=== PATIENT | female | born 1960 | race Caucasian/White ===

== ENCOUNTER → 2017-07-01 | Outpatient (CLI) | payer OTHER ==
[~2017-07-01] MED LIST: AMOXICILLIN 8751 TAB PO; CARAFATE 1GM1 G PO; CELEXA 20MG20 MG/TAB PO; COZAAR 25MG25 MG/TAB PO; DOXYCYCLINE 10100 MG PO; FLEXERIL10 MG PO; HYZAAR 50-12.1 UDTAB PO; LEVAQUIN 750MG750 M1 PO; LIDODERM 5% PATC1 EA TP; LIORESAL 1010 MG/TAB PO; LORTAB 5/500 501 TAB PO; MELOXICAM15 MG PO; MIRAPEX0.25 MG PO; MOBIC15 MG PO; NAPROSYN500 MG; NORCO 325 MG-51 TAB PO; PREDNISONE20 MG PO; PROAIR HFA0.09 MG/AC IH; PROTONIX 40MG T40 MG PO; ROXICODONE 55 MG/TAB PO; RT SPIRIVA18 MCG IH; SODIUM BICARBO650 MG PO; TOPROL XL 25MG25 MG PO; ULTRAM 50MG TAB50 MG PO; WELLBUTRIN 75MG75 MG PO
== END ==
LOC: MHCPAIN 10:29
DX: G89.29 Other chronic pain (principal); M47.817 Spondylosis without myelopathy or radiculopathy, lumbosacral region; M53.3 Sacrococcygeal disorders, not elsewhere classified; Z87.891 Personal history of nicotine dependence
CPT/HCPCS: G0463

== ENCOUNTER → 2017-08-01 | Outpatient (CLI) | payer OTHER ==
[~2017-08-01] MED LIST changes: -AMOXICILLIN 8751 TAB PO; -COZAAR 25MG25 MG/TAB PO; -DOXYCYCLINE 10100 MG PO; -LEVAQUIN 750MG750 M1 PO; -LIDODERM 5% PATC1 EA TP; -LIORESAL 1010 MG/TAB PO; -PREDNISONE20 MG PO; -PROAIR HFA0.09 MG/AC IH; -ROXICODONE 55 MG/TAB PO; -RT SPIRIVA18 MCG IH; -SODIUM BICARBO650 MG PO; -TOPROL XL 25MG25 MG PO
== END ==
LOC: MHCPAIN 09:16
DX: G89.29 Other chronic pain (principal); M47.27 Other spondylosis with radiculopathy, lumbosacral region; M53.3 Sacrococcygeal disorders, not elsewhere classified; Z87.891 Personal history of nicotine dependence
CPT/HCPCS: G0463

== ENCOUNTER → 2017-12-02 | Outpatient (CLI) | payer OTHER | LOC: MHCPAIN 09:01 | DX: G89.29 Other chronic pain (principal); M47.817 Spondylosis without myelopathy or radiculopathy, lumbosacral region; M53.3 Sacrococcygeal disorders, not elsewhere classified; Z87.891 Personal history of nicotine dependence | CPT/HCPCS: G0463 ==

== ENCOUNTER 2017-12-16 16:29 | Inpatient (IN) | payer OTHER ==
[2017-12-16] VITALS (175 sets, daily range): BP systolic 118; BP diastolic 68; PULSE 93; TEMP 99.2; O2SAT 93–100
[~2017-12-16] VITALS: Ht 160 cm; Wt 54.6 kg
[2017-12-16] MEDS ORDERED: ROXICODONE 55 MG/TAB PO (16:41)
[2017-12-16] MEDS ORDERED: RT SPIRIVA18 MCG IH (16:41)
[2017-12-16 17:20] LABS: BASO # 0.1 (0.0-0.2); BASO % 0.7 % (0.0-2.0); EOS # 0.1 (0.0-0.7); EOS % 1.2 % (0-4.0); GRAN # 6.8 (1.4-6.5); GRAN % 56.1 % (42.2-75.2); HEMATOCRIT 37.3 % (37.0-47.0); HEMOGLOBIN 13.2 g/dl (12.5-16.0); LYMPH # 3.8 (1.2-3.4); LYMPH % 31.7 % (20.0-51.0); MEAN CELL VOLUME 96 fl (80.0-100.0); MEAN CORPUSCULAR HEMOGLOBIN 34 pg (27.0-31.0); MEAN CORPUSCULAR HGB CONC 35 g/dl (33.0-37.0); MEAN PLATELET VOLUME 9.8 fl (7.4-10.4); MONO # 1.2 (0.1-0.6); MONO % 9.9 % (1.7-9.3); PLATELET COUNT 325 K/mm3 (130-400); RED BLOOD COUNT 3.87 M/mm3 (4.10-5.30); REDCELL DISTRIBUTION WIDTH-CV 13.5 % (11.5-14.5)
[2017-12-16 17:31] LABS: ALBUMIN 5.6 gm/dL (3.5-5.0); CREATININE, serum 3.03 mg/dL (0.52-1.25); POTASSIUM 3.5 mmol/L (3.4-5.0); TOTAL PROTEIN 9.1 gm/dL (6.4-8.2)
[2017-12-16 18:41] LABS: ARTERIAL BLD GAS O2 SATURATION 91.1 % (92-100); ARTERIAL BLD GAS TCO2 CT 28.1; ARTERIAL BLOOD GAS BASE EXCESS 3.9 (-2-2); ARTERIAL BLOOD GAS PCO2 35.5 mmHg (35-45); ARTERIAL BLOOD GAS PO2 58.6 mmHg (80-100)
[2017-12-16] MEDS ORDERED: LIORESAL 1010 MG/TAB PO (22:24)
[2017-12-16 23:25] LABS: PROTHROMBIN TIME 11.8 SECONDS (9.7-12.8)
[2017-12-16 23:33] LABS: SALICYLATE < 1.0 mg/dL
[2017-12-16 23:45] LABS: TROPONIN-I < 0.012 ng/mL (0.000-0.034)
[2017-12-17] VITALS (693 sets, daily range): BP systolic 100–141; BP diastolic 58–86; PULSE 66–112; TEMP 98.2–99.2; O2SAT 78–100
[2017-12-17 04:24] LABS: BASO % 0.5 % (0.0-2.0); GRAN # 3.5 (1.4-6.5); GRAN % 81.1 % (42.2-75.2); LYMPH # 0.7 (1.2-3.4); LYMPH % 15.1 % (20.0-51.0); MEAN CELL VOLUME 96 fl (80.0-100.0); MEAN CORPUSCULAR HGB CONC 35 g/dl (33.0-37.0); MEAN PLATELET VOLUME 9.9 fl (7.4-10.4); MONO # 0.1 (0.1-0.6); MONO % 2.8 % (1.7-9.3); PLATELET COUNT 277 K/mm3 (130-400); RED BLOOD COUNT 3.36 M/mm3 (4.10-5.30); REDCELL DISTRIBUTION WIDTH-CV 13.3 % (11.5-14.5)
[2017-12-17 04:28] LABS: HEMATOCRIT 32.3 % (37.0-47.0); HEMOGLOBIN 11.4 g/dl (12.5-16.0); MEAN CORPUSCULAR HEMOGLOBIN 34 pg (27.0-31.0)
[2017-12-17 04:40] LABS: ARTERIAL BLD GAS O2 SATURATION 96.5 % (92-100); ARTERIAL BLD GAS TCO2 CT 30.7; ARTERIAL BLOOD GAS BASE EXCESS 5.3 (-2-2); ARTERIAL BLOOD GAS HCO3 29.5 meq/L (22-26); ARTERIAL BLOOD GAS PCO2 41.7 mmHg (35-45); ARTERIAL BLOOD GAS PO2 94.7 mmHg (80-100); ARTERIAL BLOOD GAS pH 7.47 (7.35-7.45)
[2017-12-17 05:33] LABS: MUCOUS Present /lpf; PH 6 (5-8); URINE APPEARANCE Clear; URINE BACTERIA None Seen /hpf; URINE BILIRUBIN Negative (NEGATIVE); URINE BLOOD Negative (NEGATIVE); URINE COLOR Yellow; URINE GLUCOSE 1+ (NEGATIVE); URINE KETONE Trace (NEGATIVE); URINE LEUKOCYTE ESTERASE Negative (NEGATIVE); URINE NITRATE Negative (NEGATIVE); URINE PROTEIN(semi-quant) Negative (NEGATIVE); URINE RBC 0-2 /hpf; URINE UROBILINOGEN Negative (NEGATIVE)
[2017-12-17 05:38] LABS: COLLECTION METHOD CATHETER
[2017-12-17 05:56] LABS: ALBUMIN 4.2 gm/dL (3.5-5.0); BILIRUBIN,TOTAL 0.7 mg/dL (0.0-1.0); CALCIUM 8.7 mg/dL (8.4-10.2); CREATININE, serum 2.03 mg/dL (0.52-1.25); POTASSIUM 3.7 mmol/L (3.4-5.0)
[2017-12-18 04:26] VITALS: BP 118/75; PULSE 98; TEMP 98.5
[2017-12-18 06:26] LABS: MEAN CELL VOLUME 100 fl (80.0-100.0); MEAN CORPUSCULAR HGB CONC 34 g/dl (33.0-37.0); MEAN PLATELET VOLUME 10.4 fl (7.4-10.4); PLATELET COUNT 272 K/mm3 (130-400); RED BLOOD COUNT 2.92 M/mm3 (4.10-5.30); REDCELL DISTRIBUTION WIDTH-CV 13.8 % (11.5-14.5)
[2017-12-18 06:30] LABS: HEMATOCRIT 29.3 % (37.0-47.0); HEMOGLOBIN 9.9 g/dl (12.5-16.0); MEAN CORPUSCULAR HEMOGLOBIN 34 pg (27.0-31.0)
[2017-12-18 06:31] LABS: ALBUMIN 3.7 gm/dL (3.5-5.0); BILIRUBIN,TOTAL 0.6 mg/dL (0.0-1.0); CALCIUM 8.5 mg/dL (8.4-10.2); CREATININE, serum 1.3 mg/dL (0.52-1.25); POTASSIUM 3.1 mmol/L (3.4-5.0); TOTAL PROTEIN 6.3 gm/dL (6.4-8.2)
[2017-12-18 08:41] VITALS: BP 115/59; PULSE 88; TEMP 97.4
[2017-12-18 09:13] LABS: BAND 22 % (0-10); HYPOCHROMIA 1+; LYMPHOCYTE 15 % (20.0-51.0); NEUTROPHILS 62 % (42.0-75.2); PLATELET ESTIMATE NORMAL (NORMAL); TARGET CELLS 2+
[2017-12-18 11:18] VITALS: BP 133/69; PULSE 82; TEMP 98.3
[2017-12-18 15:27] VITALS: BP 132/69; PULSE 92; TEMP 97.4
[2017-12-18 19:28] VITALS: BP 135/74; PULSE 85; TEMP 98.6
[2017-12-18 23:50] VITALS: BP 150/86; PULSE 92; TEMP 97.6
[2017-12-19 03:38] VITALS: BP 156/93; PULSE 99; TEMP 98.1
[2017-12-19 06:56] LABS: MEAN CELL VOLUME 102 fl (80.0-100.0); MEAN CORPUSCULAR HGB CONC 33 g/dl (33.0-37.0); MEAN PLATELET VOLUME 10.6 fl (7.4-10.4); PLATELET COUNT 277 K/mm3 (130-400); RED BLOOD COUNT 3.04 M/mm3 (4.10-5.30)
[2017-12-19 07:12] LABS: HEMOGLOBIN 10.2 g/dl (12.5-16.0); MEAN CORPUSCULAR HEMOGLOBIN 34 pg (27.0-31.0)
[2017-12-19 07:20] LABS: BILIRUBIN,TOTAL 0.6 mg/dL (0.0-1.0); CALCIUM 9.2 mg/dL (8.4-10.2); CREATININE, serum 1.16 mg/dL (0.52-1.25); POTASSIUM 3.7 mmol/L (3.4-5.0); TOTAL PROTEIN 6.7 gm/dL (6.4-8.2)
[2017-12-19 07:54] VITALS: BP 151/100; PULSE 82; TEMP 98.5
[2017-12-19] MEDS ORDERED: LIDODERM 5% PATC1 EA TP (09:55)
[2017-12-19] MEDS ORDERED: LEVAQUIN 750MG750 M1 PO (09:57)
[2017-12-19 10:00] VITALS: BP 118/65
[2017-12-19] MEDS ORDERED: PREDNISONE20 MG PO (10:00)
[2017-12-19 10:41] LABS: BAND 7 % (0-10); LYMPHOCYTE 29 % (20.0-51.0); NEUTROPHILS 57 % (42.0-75.2); PLATELET ESTIMATE NORMAL (NORMAL)
[2017-12-19 11:50] VITALS: BP 147/76; PULSE 79; TEMP 98.4
== END 2017-12-19 16:43 | disposition home or self-care (01) | DRG 871 ==
LOC: COL.ER 16:29 → MEDICAL 17:50 → ICU 17:50 → MEDICAL 12-17 14:07
PROVIDERS: Family Medicine; Internal Medicine Pulmonary Disease; Nurse Practitioner Family
DX: A41.9 Sepsis, unspecified organism (principal); R65.21 Severe sepsis with septic shock; N17.9 Acute kidney failure, unspecified; E87.1 Hypo-osmolality and hyponatremia; J44.1 Chronic obstructive pulmonary disease with (acute) exacerbation; J44.0 Chronic obstructive pulmonary disease with (acute) lower respiratory infection; E44.0 Moderate protein-calorie malnutrition; J20.9 Acute bronchitis, unspecified; J44.9 Chronic obstructive pulmonary disease, unspecified; I10 Essential (primary) hypertension; G25.81 Restless legs syndrome; R73.9 Hyperglycemia, unspecified; E86.0 Dehydration; Z87.891 Personal history of nicotine dependence; Z68.21 Body mass index [BMI] 21.0-21.9, adult
CPT/HCPCS: 99223-AI; 99232-AI; 99239; C9113; J1644; J1956; J2930; J3010; J7030; J7512

== ENCOUNTER → 2018-02-28 | Outpatient (CLI) | payer OTHER ==
[~2018-02-28] MED LIST changes: +LEVAQUIN 750MG750 M1 PO; +LIDODERM 5% PATC1 EA TP; +LIORESAL 1010 MG/TAB PO; +PREDNISONE20 MG PO; +ROXICODONE 55 MG/TAB PO; +RT SPIRIVA18 MCG IH
== END ==
LOC: MHCPAIN 09:23
DX: G89.29 Other chronic pain (principal); M47.817 Spondylosis without myelopathy or radiculopathy, lumbosacral region; M53.3 Sacrococcygeal disorders, not elsewhere classified
CPT/HCPCS: G0463

== ENCOUNTER 2018-06-30 15:46 | Emergency (ER) | payer OTHER ==
[~2018-06-30] VITALS: Ht 162.6 cm; Wt 49.1 kg
[2018-06-30 15:50] VITALS: TEMP 98.4
[2018-06-30 16:39] LABS: ALCOHOL(ethanol),MEDICAL 204 mg/dL
[2018-06-30 17:00] LABS: TROPONIN-I < 0.012 ng/mL (0.000-0.034)
[2018-06-30 17:33] LABS: INR 0.9 (0.8-3.0)
[2018-06-30 18:54] LABS: COLLECTION METHOD CLEAN CATCH
[2018-06-30 19:01] LABS: PH 7 (5-8); SQUAMOUS EPITHELIAL 0-2 /hpf; URINE APPEARANCE Clear; URINE BACTERIA None Seen /hpf; URINE BILIRUBIN Negative (NEGATIVE); URINE BLOOD Negative (NEGATIVE); URINE COLOR Yellow; URINE GLUCOSE Negative (NEGATIVE); URINE KETONE Negative (NEGATIVE); URINE LEUKOCYTE ESTERASE Negative (NEGATIVE); URINE NITRATE Negative (NEGATIVE); URINE PROTEIN(semi-quant) Negative (NEGATIVE); URINE RBC 0-2 /hpf; URINE UROBILINOGEN Negative (NEGATIVE)
[2018-06-30 19:45] VITALS: BP 128/85; PULSE 72
== END 2018-06-30 19:45 | disposition home or self-care (01) ==
LOC: COL.ER 15:46
PROVIDERS: Emergency Medicine
DX: I95.1 Orthostatic hypotension (principal); E86.0 Dehydration; I10 Essential (primary) hypertension; E78.5 Hyperlipidemia, unspecified; J44.9 Chronic obstructive pulmonary disease, unspecified; F10.129 Alcohol abuse with intoxication, unspecified; F32.9 Major depressive disorder, single episode, unspecified; Y90.7 Blood alcohol level of 200-239 mg/100 ml; Z87.891 Personal history of nicotine dependence; Z91.81 History of falling
CPT/HCPCS: J7030

== ENCOUNTER 2018-07-16 06:46 | Inpatient (IN) | payer OTHER ==
[~2018-07-16] VITALS: Ht 160 cm; Wt 50.7 kg
[2018-07-16 07:18] LABS: HEMATOCRIT 40.4 % (37.0-47.0); HEMOGLOBIN 14.3 g/dl (12.5-16.0); MEAN CELL VOLUME 96 fl (80.0-100.0); MEAN CORPUSCULAR HEMOGLOBIN 34 pg (27.0-31.0); MEAN CORPUSCULAR HGB CONC 35 g/dl (33.0-37.0); MEAN PLATELET VOLUME 10.3 fl (7.4-10.4); PLATELET COUNT 323 K/mm3 (130-400); RED BLOOD COUNT 4.19 M/mm3 (4.10-5.30); REDCELL DISTRIBUTION WIDTH-CV 14.8 % (11.5-14.5)
[2018-07-16 07:28] LABS: ALBUMIN 4.8 gm/dL (3.5-5.0); BILIRUBIN,TOTAL 1.5 mg/dL (0.0-1.0); CALCIUM 10.3 mg/dL (8.4-10.2); CREATININE, serum 1.01 mg/dL (0.52-1.25); POTASSIUM 3.9 mmol/L (3.4-5.0); TOTAL PROTEIN 8.8 gm/dL (6.4-8.2)
[2018-07-16 07:41] LABS: BAND 31 % (0-10); LYMPHOCYTE 6 % (20.0-51.0); NEUTROPHILS 55 % (42.0-75.2); PLATELET ESTIMATE NORMAL (NORMAL)
[2018-07-16 08:04] LABS: AMYLASE 85 U/L (30-110); LIPASE 46 U/L (23-300)
[2018-07-16] MEDS ORDERED: PROAIR HFA0.09 MG/AC IH (08:33)
[2018-07-16 09:17] LABS: COLLECTION METHOD CLEAN CATCH
[2018-07-16 09:27] LABS: PH 6 (5-8); SQUAMOUS EPITHELIAL 0-2 /hpf; URINE APPEARANCE Clear; URINE BACTERIA None Seen /hpf; URINE BILIRUBIN Negative (NEGATIVE); URINE BLOOD Negative (NEGATIVE); URINE COLOR Yellow; URINE GLUCOSE 1+ (NEGATIVE); URINE KETONE 1+ (NEGATIVE); URINE LEUKOCYTE ESTERASE Negative (NEGATIVE); URINE NITRATE Negative (NEGATIVE); URINE PROTEIN(semi-quant) 1+ (NEGATIVE); URINE RBC 0-2 /hpf; URINE UROBILINOGEN >=4.0 mg/dL (NEGATIVE)
[2018-07-16 10:03] VITALS: BP 175/95; PULSE 110; TEMP 97.8
[2018-07-16] MEDS ORDERED: COZAAR 25MG25 MG/TAB PO (10:34)
[2018-07-16 12:25] VITALS: BP 144/86; PULSE 106; TEMP 98
[2018-07-16 16:31] VITALS: BP 153/88; PULSE 115; TEMP 98
[2018-07-16 20:34] VITALS: BP 106/59; PULSE 125; TEMP 98
[2018-07-16 22:48] VITALS: BP 100/62; PULSE 129
[2018-07-17] VITALS (407 sets, daily range): BP systolic 80–128; BP diastolic 40–79; PULSE 118–136; TEMP 97.2–98; O2SAT 82–100
[2018-07-17 00:29] LABS: CALCIUM 8.2 mg/dL (8.4-10.2); CREATININE, serum 1.13 mg/dL (0.52-1.25); MAGNESIUM 1.8 mg/dL (1.6-2.3); POTASSIUM 3.3 mmol/L (3.4-5.0)
[2018-07-17 00:45] LABS: TROPONIN-I 2.24 ng/mL (0.000-0.034)
[2018-07-17 01:35] LABS: HEMATOCRIT 37.1 % (37.0-47.0); HEMOGLOBIN 12.8 g/dl (12.5-16.0); MEAN CELL VOLUME 98 fl (80.0-100.0); MEAN CORPUSCULAR HEMOGLOBIN 34 pg (27.0-31.0); MEAN CORPUSCULAR HGB CONC 35 g/dl (33.0-37.0); MEAN PLATELET VOLUME 10.3 fl (7.4-10.4); PLATELET COUNT 263 K/mm3 (130-400); RED BLOOD COUNT 3.78 M/mm3 (4.10-5.30); REDCELL DISTRIBUTION WIDTH-CV 14.4 % (11.5-14.5)
[2018-07-17 02:08] LABS: INR 1.1 (0.8-3.0); PROTHROMBIN TIME 12.4 SECONDS (9.7-12.8)
[2018-07-17 03:03] LABS: BAND 48 % (0-10); METAMYELOCYTE 6 % (0-0); MYELOCYTE 2 % (0-0); NEUTROPHILS 15 % (42.0-75.2)
[2018-07-17 03:04] LABS: LYMPHOCYTE 26 % (20.0-51.0)
[2018-07-17 03:12] LABS: TOXIC GRANULATION PRESENT
[2018-07-17 03:13] LABS: BURR CELLS 1+; POIKILOCYTOSIS 1+; TARGET CELLS 1+
[2018-07-17 03:21] LABS: ANISOCYTOSIS 1+; MICROCYTOSIS 1+; SCHISTOCYTES 1+
[2018-07-17 03:33] LABS: PLATELET ESTIMATE NORMAL (NORMAL)
[2018-07-17 04:34] LABS: ARTERIAL BLOOD GAS BASE EXCESS -5.4 (-2-2); ARTERIAL BLOOD GAS HCO3 17.2 meq/L (22-26); ARTERIAL BLOOD GAS PCO2 25.9 mmHg (35-45); ARTERIAL BLOOD GAS PO2 68.2 mmHg (80-100); ARTERIAL BLOOD GAS pH 7.44 (7.35-7.45)
[2018-07-17 08:39] LABS: PATHOLOGY DIFF REVIEW OK +
[2018-07-17 10:06] LABS: ARTERIAL BLD GAS TCO2 CT 14.3; ARTERIAL BLOOD GAS BASE EXCESS -14.1 (-2-2); ARTERIAL BLOOD GAS HCO3 13.2 meq/L (22-26); ARTERIAL BLOOD GAS PCO2 36.3 mmHg (35-45)
[2018-07-17 10:08] LABS: ARTERIAL BLOOD GAS PO2 375.8 mmHg (80-100); ARTERIAL BLOOD GAS pH 7.18 (7.35-7.45)
[2018-07-17 10:41] LABS: CREATININE, serum 1.12 mg/dL (0.52-1.25); POTASSIUM 3.9 mmol/L (3.4-5.0)
[2018-07-17 10:43] LABS: CALCIUM 5.7 mg/dL (8.4-10.2)
[2018-07-17 10:49] LABS: MEAN CORPUSCULAR HGB CONC 33 g/dl (33.0-37.0); MEAN PLATELET VOLUME 10.9 fl (7.4-10.4); PLATELET COUNT 202 K/mm3 (130-400); RED BLOOD COUNT 2.81 M/mm3 (4.10-5.30); REDCELL DISTRIBUTION WIDTH-CV 15.1 % (11.5-14.5)
[2018-07-17 10:52] LABS: HEMATOCRIT 29.1 % (37.0-47.0); HEMOGLOBIN 9.6 g/dl (12.5-16.0); MEAN CELL VOLUME 104 fl (80.0-100.0); MEAN CORPUSCULAR HEMOGLOBIN 34 pg (27.0-31.0)
[2018-07-17 11:57] LABS: ARTERIAL BLD GAS O2 SATURATION 93.9 % (92-100); ARTERIAL BLD GAS TCO2 CT 13.9; ARTERIAL BLOOD GAS BASE EXCESS -14.2 (-2-2); ARTERIAL BLOOD GAS HCO3 12.9 meq/L (22-26); ARTERIAL BLOOD GAS PCO2 34.3 mmHg (35-45); ARTERIAL BLOOD GAS PO2 90.6 mmHg (80-100)
[2018-07-17 11:58] LABS: ARTERIAL BLOOD GAS pH 7.19 (7.35-7.45)
[2018-07-17 12:41] LABS: BAND 41 % (0-10); EOSINOPHIL 2 % (0-4); METAMYELOCYTE 7 % (0-0); MYELOCYTE 8 % (0-0); NEUTROPHILS 11 % (42.0-75.2); NUCLEATED RED BLOOD CELL 1 (0-6)
[2018-07-17 12:42] LABS: PLATELET ESTIMATE NORMAL (NORMAL)
[2018-07-17 12:43] LABS: LYMPHOCYTE 22 % (20.0-51.0)
[2018-07-17 12:44] LABS: ANISOCYTOSIS 1+; BURR CELLS 1+; POIKILOCYTOSIS 1+; SCHISTOCYTES 1+
[2018-07-17 16:33] LABS: ARTERIAL BLD GAS O2 SATURATION 98.1 % (92-100); ARTERIAL BLD GAS TCO2 CT 13.4; ARTERIAL BLOOD GAS BASE EXCESS -12.4 (-2-2); ARTERIAL BLOOD GAS HCO3 12.6 meq/L (22-26); ARTERIAL BLOOD GAS PCO2 25.8 mmHg (35-45); ARTERIAL BLOOD GAS pH 7.31 (7.35-7.45)
[2018-07-17 16:35] LABS: ARTERIAL BLOOD GAS PO2 150.1 mmHg (80-100)
[2018-07-17 17:31] LABS: CALCIUM 6.9 mg/dL (8.4-10.2); CREATININE, serum 1.21 mg/dL (0.52-1.25)
[2018-07-17 20:18] LABS: ARTERIAL BLD GAS O2 SATURATION 97.9 % (92-100); ARTERIAL BLD GAS TCO2 CT 16.9; ARTERIAL BLOOD GAS BASE EXCESS -7.6 (-2-2); ARTERIAL BLOOD GAS HCO3 16.1 meq/L (22-26); ARTERIAL BLOOD GAS PCO2 26.6 mmHg (35-45)
[2018-07-17 20:20] LABS: ARTERIAL BLOOD GAS PO2 134.1 mmHg (80-100)
[2018-07-18] VITALS (875 sets, daily range): BP systolic 74–112; BP diastolic 42–80; PULSE 92–134; TEMP 97–101.1; O2SAT 84–100
[2018-07-18 04:20] LABS: MEAN CELL VOLUME 100 fl (80.0-100.0); MEAN CORPUSCULAR HGB CONC 34 g/dl (33.0-37.0); MEAN PLATELET VOLUME 11.2 fl (7.4-10.4); PLATELET COUNT 161 K/mm3 (130-400); RED BLOOD COUNT 2.08 M/mm3 (4.10-5.30); REDCELL DISTRIBUTION WIDTH-CV 14.4 % (11.5-14.5)
[2018-07-18 04:30] LABS: HEMATOCRIT 20.7 % (37.0-47.0); MEAN CORPUSCULAR HEMOGLOBIN 34 pg (27.0-31.0)
[2018-07-18 04:34] LABS: ALBUMIN 1.7 gm/dL (3.5-5.0); BILIRUBIN,TOTAL 0.4 mg/dL (0.0-1.0); CALCIUM 6.4 mg/dL (8.4-10.2); CREATININE, serum 1.39 mg/dL (0.52-1.25); MAGNESIUM 1.4 mg/dL (1.6-2.3); POTASSIUM 3.2 mmol/L (3.4-5.0); TOTAL PROTEIN 3.7 gm/dL (6.4-8.2)
[2018-07-18 04:45] LABS: TROPONIN-I 0.605 ng/mL (0.000-0.034)
[2018-07-18 05:20] LABS: ARTERIAL BLD GAS O2 SATURATION 87.9 % (92-100); ARTERIAL BLOOD GAS BASE EXCESS -0.8 (-2-2); ARTERIAL BLOOD GAS PCO2 33.9 mmHg (35-45); ARTERIAL BLOOD GAS PO2 52.9 mmHg (80-100); ARTERIAL BLOOD GAS pH 7.45 (7.35-7.45)
[2018-07-18 07:57] LABS: BAND 74 % (0-10); LYMPHOCYTE 6 % (20.0-51.0); METAMYELOCYTE 3 % (0-0); NEUTROPHILS 13 % (42.0-75.2)
[2018-07-18 07:58] LABS: HYPOCHROMIA 1+; PLATELET ESTIMATE NORMAL (NORMAL)
[2018-07-18 15:03] LABS: ARTERIAL BLD GAS O2 SATURATION 92.2 % (92-100); ARTERIAL BLD GAS TCO2 CT 24.8; ARTERIAL BLOOD GAS BASE EXCESS -1.3 (-2-2); ARTERIAL BLOOD GAS HCO3 23.6 meq/L (22-26); ARTERIAL BLOOD GAS PCO2 39.8 mmHg (35-45); ARTERIAL BLOOD GAS PO2 65.7 mmHg (80-100); ARTERIAL BLOOD GAS pH 7.39 (7.35-7.45)
[2018-07-18 15:24] LABS: HEMATOCRIT 26.1 % (37.0-47.0); HEMOGLOBIN 9.1 g/dl (12.5-16.0)
[2018-07-18 15:33] LABS: MAGNESIUM 2.1 mg/dL (1.6-2.3); POTASSIUM 3.9 mmol/L (3.4-5.0)
[2018-07-18 16:33] LABS: ALBUMIN 1.9 gm/dL (3.5-5.0); BILIRUBIN,TOTAL 0.9 mg/dL (0.0-1.0); CALCIUM 6.5 mg/dL (8.4-10.2); CREATININE, serum 1.48 mg/dL (0.52-1.25)
[2018-07-18 16:40] LABS: PRE ALBUMIN 4.8 mg/dL (17.6-36.0)
[2018-07-18 20:43] LABS: HEMATOCRIT 25.7 % (37.0-47.0); HEMOGLOBIN 8.9 g/dl (12.5-16.0)
[2018-07-18 20:45] LABS: MAGNESIUM 2.2 mg/dL (1.6-2.3); PHOSPHOROUS 3.3 mg/dL (2.5-4.5); POTASSIUM 3.7 mmol/L (3.4-5.0)
[2018-07-19] VITALS (742 sets, daily range): BP systolic 93–116; BP diastolic 56–71; PULSE 99–110; TEMP 97.4–101.6; O2SAT 78–100
[2018-07-19 03:39] LABS: MEAN CORPUSCULAR HGB CONC 34 g/dl (33.0-37.0); MEAN PLATELET VOLUME 11.5 fl (7.4-10.4); PLATELET COUNT 124 K/mm3 (130-400); RED BLOOD COUNT 2.66 M/mm3 (4.10-5.30); REDCELL DISTRIBUTION WIDTH-CV 18.1 % (11.5-14.5)
[2018-07-19 03:46] LABS: HEMATOCRIT 24.9 % (37.0-47.0); HEMOGLOBIN 8.5 g/dl (12.5-16.0); MEAN CELL VOLUME 94 fl (80.0-100.0); MEAN CORPUSCULAR HEMOGLOBIN 32 pg (27.0-31.0)
[2018-07-19 03:52] LABS: ALBUMIN 1.9 gm/dL (3.5-5.0); BILIRUBIN,TOTAL 0.4 mg/dL (0.0-1.0); CREATININE, serum 1.42 mg/dL (0.52-1.25); POTASSIUM 3.6 mmol/L (3.4-5.0); TOTAL PROTEIN 4.1 gm/dL (6.4-8.2)
[2018-07-19 04:11] LABS: MAGNESIUM 2.5 mg/dL (1.6-2.3); PHOSPHOROUS 2.8 mg/dL (2.5-4.5)
[2018-07-19 04:34] LABS: ANISOCYTOSIS 1+; BAND 46 % (0-10); EOSINOPHIL 1 % (0-4); LYMPHOCYTE 4 % (20.0-51.0); METAMYELOCYTE 4 % (0-0); NEUTROPHILS 36 % (42.0-75.2); PLATELET ESTIMATE DECREASED (NORMAL)
[2018-07-19 04:35] LABS: TOXIC GRANULATION PRESENT
[2018-07-19 04:36] LABS: BURR CELLS 1+
[2018-07-19 04:37] LABS: SCHISTOCYTES 1+
[2018-07-19 05:20] LABS: ARTERIAL BLD GAS O2 SATURATION 96.6 % (92-100); ARTERIAL BLD GAS TCO2 CT 27.3; ARTERIAL BLOOD GAS PCO2 43.1 mmHg (35-45)
[2018-07-19 08:19] LABS: CALCIUM 7.1 mg/dL (8.4-10.2); CREATININE, serum 1.31 mg/dL (0.52-1.25); POTASSIUM 4.2 mmol/L (3.4-5.0)
[2018-07-19 17:20] LABS: HEMATOCRIT 24.2 % (37.0-47.0); HEMOGLOBIN 8.2 g/dl (12.5-16.0)
[2018-07-19 17:29] LABS: CALCIUM 7.4 mg/dL (8.4-10.2); CREATININE, serum 1.23 mg/dL (0.52-1.25); MAGNESIUM 2.7 mg/dL (1.6-2.3); POTASSIUM 4.2 mmol/L (3.4-5.0)
[2018-07-20] VITALS (815 sets, daily range): BP systolic 108–132; BP diastolic 58–86; PULSE 99–116; TEMP 97.2–100.4; O2SAT 80–100
[2018-07-20 05:02] LABS: ARTERIAL BLD GAS O2 SATURATION 96.4 % (92-100); ARTERIAL BLD GAS TCO2 CT 28.8; ARTERIAL BLOOD GAS BASE EXCESS 2.3 (-2-2); ARTERIAL BLOOD GAS HCO3 27.4 meq/L (22-26); ARTERIAL BLOOD GAS PCO2 45.4 mmHg (35-45); ARTERIAL BLOOD GAS PO2 90.9 mmHg (80-100)
[2018-07-20 05:17] LABS: MEAN CELL VOLUME 98 fl (80.0-100.0); MEAN CORPUSCULAR HGB CONC 33 g/dl (33.0-37.0); MEAN PLATELET VOLUME 11.6 fl (7.4-10.4); PLATELET COUNT 128 K/mm3 (130-400); RED BLOOD COUNT 2.62 M/mm3 (4.10-5.30); REDCELL DISTRIBUTION WIDTH-CV 18.5 % (11.5-14.5)
[2018-07-20 05:19] LABS: HEMATOCRIT 25.6 % (37.0-47.0); HEMOGLOBIN 8.4 g/dl (12.5-16.0); MEAN CORPUSCULAR HEMOGLOBIN 32 pg (27.0-31.0)
[2018-07-20 05:28] LABS: BILIRUBIN,TOTAL 0.4 mg/dL (0.0-1.0); CALCIUM 7.8 mg/dL (8.4-10.2); CREATININE, serum 1.12 mg/dL (0.52-1.25); MAGNESIUM 2.3 mg/dL (1.6-2.3); PHOSPHOROUS 2.8 mg/dL (2.5-4.5); POTASSIUM 4.3 mmol/L (3.4-5.0); TOTAL PROTEIN 4.6 gm/dL (6.4-8.2)
[2018-07-20 06:15] LABS: ANISOCYTOSIS 1+; BAND 20 % (0-10); EOSINOPHIL 2 % (0-4); HYPOCHROMIA 1+; LYMPHOCYTE 7 % (20.0-51.0); METAMYELOCYTE 2 % (0-0); NEUTROPHILS 58 % (42.0-75.2); NUCLEATED RED BLOOD CELL 1 (0-6); TARGET CELLS 2+
[2018-07-20 06:16] LABS: POLYCHROMASIA 1+; TOXIC GRANULATION PRESENT
[2018-07-21] VITALS (711 sets, daily range): BP systolic 112–151; BP diastolic 68–99; PULSE 96–111; TEMP 97.1–100.7; O2SAT 85–100
[2018-07-21 05:30] LABS: ARTERIAL BLD GAS O2 SATURATION 93.3 % (92-100); ARTERIAL BLD GAS TCO2 CT 31.3; ARTERIAL BLOOD GAS BASE EXCESS 5.5 (-2-2); ARTERIAL BLOOD GAS PCO2 43.4 mmHg (35-45); ARTERIAL BLOOD GAS PO2 68.3 mmHg (80-100); ARTERIAL BLOOD GAS pH 7.46 (7.35-7.45)
[2018-07-21 05:57] LABS: MEAN CELL VOLUME 96 fl (80.0-100.0); MEAN CORPUSCULAR HGB CONC 33 g/dl (33.0-37.0); MEAN PLATELET VOLUME 12.1 fl (7.4-10.4); PLATELET COUNT 183 K/mm3 (130-400); RED BLOOD COUNT 2.67 M/mm3 (4.10-5.30)
[2018-07-21 05:59] LABS: HEMATOCRIT 25.6 % (37.0-47.0); HEMOGLOBIN 8.5 g/dl (12.5-16.0); MEAN CORPUSCULAR HEMOGLOBIN 32 pg (27.0-31.0)
[2018-07-21 06:13] LABS: ALBUMIN 2.2 gm/dL (3.5-5.0); BILIRUBIN,TOTAL 0.4 mg/dL (0.0-1.0); CALCIUM 8.3 mg/dL (8.4-10.2); CREATININE, serum 1.13 mg/dL (0.52-1.25); MAGNESIUM 1.5 mg/dL (1.6-2.3); PHOSPHOROUS 4.3 mg/dL (2.5-4.5); POTASSIUM 3.9 mmol/L (3.4-5.0); TOTAL PROTEIN 4.8 gm/dL (6.4-8.2)
[2018-07-21 07:13] LABS: BAND 37 % (0-10); DOHLE BODIES PRESENT; EOSINOPHIL 1 % (0-4); LYMPHOCYTE 8 % (20.0-51.0); NEUTROPHILS 42 % (42.0-75.2); PLATELET ESTIMATE NORMAL (NORMAL); TARGET CELLS 1+; TOXIC GRANULATION PRESENT
[2018-07-21 07:14] LABS: HYPOCHROMIA 1+
[2018-07-21 20:21] LABS: MAGNESIUM 1.8 mg/dL (1.6-2.3); PHOSPHOROUS 5.1 mg/dL (2.5-4.5)
[2018-07-22] VITALS (667 sets, daily range): BP systolic 94–134; BP diastolic 67–94; PULSE 96–108; TEMP 97.5–99.2; O2SAT 69–100
[2018-07-22 05:26] LABS: HEMATOCRIT 26.1 % (37.0-47.0); HEMOGLOBIN 8.5 g/dl (12.5-16.0); MEAN CELL VOLUME 97 fl (80.0-100.0); MEAN CORPUSCULAR HEMOGLOBIN 32 pg (27.0-31.0); MEAN CORPUSCULAR HGB CONC 33 g/dl (33.0-37.0); MEAN PLATELET VOLUME 11.7 fl (7.4-10.4); PLATELET COUNT 267 K/mm3 (130-400); RED BLOOD COUNT 2.69 M/mm3 (4.10-5.30); REDCELL DISTRIBUTION WIDTH-CV 17.5 % (11.5-14.5)
[2018-07-22 05:40] LABS: ALBUMIN 2.3 gm/dL (3.5-5.0); BILIRUBIN,TOTAL 0.4 mg/dL (0.0-1.0); CALCIUM 8.2 mg/dL (8.4-10.2); CREATININE, serum 0.94 mg/dL (0.52-1.25); MAGNESIUM 1.9 mg/dL (1.6-2.3); PHOSPHOROUS 5.2 mg/dL (2.5-4.5); POTASSIUM 4.3 mmol/L (3.4-5.0)
[2018-07-22 05:56] LABS: ARTERIAL BLD GAS TCO2 CT 30.1; ARTERIAL BLOOD GAS BASE EXCESS 3.9 (-2-2); ARTERIAL BLOOD GAS HCO3 28.7 meq/L (22-26); ARTERIAL BLOOD GAS PCO2 44.5 mmHg (35-45); ARTERIAL BLOOD GAS PO2 50.5 mmHg (80-100); ARTERIAL BLOOD GAS pH 7.43 (7.35-7.45)
[2018-07-22 05:58] LABS: BAND 19 % (0-10); EOSINOPHIL 1 % (0-4); METAMYELOCYTE 2 % (0-0); NEUTROPHILS 51 % (42.0-75.2)
[2018-07-22 05:59] LABS: HYPOCHROMIA 1+; PLATELET ESTIMATE NORMAL (NORMAL); TARGET CELLS 1+
[2018-07-22 06:00] LABS: ANISOCYTOSIS 1+; MICROCYTOSIS 1+; POIKILOCYTOSIS 1+
[2018-07-22 06:03] LABS: LYMPHOCYTE 22 % (20.0-51.0)
[2018-07-22 12:43] LABS: ARTERIAL BLD GAS TCO2 CT 29.4; ARTERIAL BLOOD GAS BASE EXCESS 3.5 (-2-2); ARTERIAL BLOOD GAS HCO3 28.1 meq/L (22-26); ARTERIAL BLOOD GAS PCO2 42.5 mmHg (35-45); ARTERIAL BLOOD GAS PO2 94.9 mmHg (80-100); ARTERIAL BLOOD GAS pH 7.44 (7.35-7.45)
[2018-07-23] VITALS (525 sets, daily range): BP systolic 90–171; BP diastolic 55–104; PULSE 75–103; TEMP 97.1–99.3; O2SAT 93–100
[2018-07-23 05:28] LABS: MEAN CELL VOLUME 95 fl (80.0-100.0); MEAN CORPUSCULAR HGB CONC 34 g/dl (33.0-37.0); MEAN PLATELET VOLUME 11.8 fl (7.4-10.4); PLATELET COUNT 352 K/mm3 (130-400); RED BLOOD COUNT 2.58 M/mm3 (4.10-5.30); REDCELL DISTRIBUTION WIDTH-CV 16.8 % (11.5-14.5)
[2018-07-23 05:30] LABS: HEMATOCRIT 24.5 % (37.0-47.0); HEMOGLOBIN 8.2 g/dl (12.5-16.0); MEAN CORPUSCULAR HEMOGLOBIN 32 pg (27.0-31.0)
[2018-07-23 05:36] LABS: ARTERIAL BLD GAS O2 SATURATION 97.8 % (92-100); ARTERIAL BLD GAS TCO2 CT 30.9; ARTERIAL BLOOD GAS HCO3 29.7 meq/L (22-26); ARTERIAL BLOOD GAS PO2 117.4 mmHg (80-100)
[2018-07-23 05:52] LABS: ALBUMIN 2.4 gm/dL (3.5-5.0); BILIRUBIN,TOTAL 0.6 mg/dL (0.0-1.0); CALCIUM 8.5 mg/dL (8.4-10.2); CREATININE, serum 0.93 mg/dL (0.52-1.25); POTASSIUM 3.7 mmol/L (3.4-5.0); TOTAL PROTEIN 5.5 gm/dL (6.4-8.2)
[2018-07-23 05:54] LABS: BAND 8 % (0-10); BASOPHIL 1 % (0-2); HYPOCHROMIA 1+; LYMPHOCYTE 15 % (20.0-51.0); NEUTROPHILS 69 % (42.0-75.2); TARGET CELLS 1+; TOXIC GRANULATION PRESENT
[2018-07-23 05:56] LABS: ANISOCYTOSIS 1+
[2018-07-23 06:34] LABS: PHOSPHOROUS 3.2 mg/dL (2.5-4.5)
[2018-07-23 19:03] LABS: ARTERIAL BLD GAS O2 SATURATION 92.4 % (92-100); ARTERIAL BLD GAS TCO2 CT 31.1; ARTERIAL BLOOD GAS BASE EXCESS 5.3 (-2-2); ARTERIAL BLOOD GAS HCO3 29.8 meq/L (22-26); ARTERIAL BLOOD GAS PCO2 43.7 mmHg (35-45); ARTERIAL BLOOD GAS PO2 65.1 mmHg (80-100); ARTERIAL BLOOD GAS pH 7.45 (7.35-7.45)
[2018-07-24] VITALS (597 sets, daily range): BP systolic 87–128; BP diastolic 54–81; PULSE 83–102; TEMP 98.4–99.6; O2SAT 83–100
[2018-07-24 05:05] LABS: ARTERIAL BLD GAS O2 SATURATION 93.1 % (92-100); ARTERIAL BLD GAS TCO2 CT 30.2; ARTERIAL BLOOD GAS BASE EXCESS 4.2 (-2-2); ARTERIAL BLOOD GAS HCO3 28.9 meq/L (22-26); ARTERIAL BLOOD GAS PO2 68.6 mmHg (80-100); ARTERIAL BLOOD GAS pH 7.44 (7.35-7.45)
[2018-07-24 05:43] LABS: MEAN CELL VOLUME 99 fl (80.0-100.0); MEAN CORPUSCULAR HGB CONC 32 g/dl (33.0-37.0); MEAN PLATELET VOLUME 11.8 fl (7.4-10.4); PLATELET COUNT 451 K/mm3 (130-400); RED BLOOD COUNT 2.46 M/mm3 (4.10-5.30); REDCELL DISTRIBUTION WIDTH-CV 16.9 % (11.5-14.5)
[2018-07-24 05:47] LABS: HEMATOCRIT 24.4 % (37.0-47.0); HEMOGLOBIN 7.8 g/dl (12.5-16.0); MEAN CORPUSCULAR HEMOGLOBIN 32 pg (27.0-31.0)
[2018-07-24 05:54] LABS: CALCIUM 8.5 mg/dL (8.4-10.2); CREATININE, serum 0.9 mg/dL (0.52-1.25); MAGNESIUM 1.8 mg/dL (1.6-2.3); POTASSIUM 4.2 mmol/L (3.4-5.0)
[2018-07-24 06:18] LABS: BAND 7 % (0-10); BASOPHIL 1 % (0-2); METAMYELOCYTE 2 % (0-0); MYELOCYTE 4 % (0-0); NEUTROPHILS 68 % (42.0-75.2)
[2018-07-24 06:19] LABS: LYMPHOCYTE 16 % (20.0-51.0)
[2018-07-24 06:20] LABS: HYPOCHROMIA 1+; PLATELET ESTIMATE NORMAL (NORMAL)
[2018-07-24 06:21] LABS: ANISOCYTOSIS 1+
[2018-07-24 06:22] LABS: POIKILOCYTOSIS 1+; TARGET CELLS 1+
[2018-07-24 08:28] LABS: PATHOLOGY DIFF REVIEW OK
[2018-07-24 11:16] LABS: 12 HR URINE TOTAL VOLUME 0.98 L
[2018-07-25] VITALS (1140 sets, daily range): BP systolic 108–154; BP diastolic 60–93; PULSE 85–122; TEMP 97.6–98.4; O2SAT 64–100
[2018-07-25 05:55] LABS: ARTERIAL BLD GAS TCO2 CT 27.8; ARTERIAL BLOOD GAS BASE EXCESS 2.5 (-2-2); ARTERIAL BLOOD GAS HCO3 26.6 meq/L (22-26); ARTERIAL BLOOD GAS PCO2 38.8 mmHg (35-45); ARTERIAL BLOOD GAS PO2 100.3 mmHg (80-100); ARTERIAL BLOOD GAS pH 7.45 (7.35-7.45)
[2018-07-25 07:04] LABS: MEAN CELL VOLUME 97 fl (80.0-100.0); MEAN CORPUSCULAR HGB CONC 32 g/dl (33.0-37.0); MEAN PLATELET VOLUME 11.6 fl (7.4-10.4); RED BLOOD COUNT 2.52 M/mm3 (4.10-5.30); REDCELL DISTRIBUTION WIDTH-CV 16.7 % (11.5-14.5)
[2018-07-25 07:14] LABS: CREATININE, serum 0.91 mg/dL (0.52-1.25); POTASSIUM 4.5 mmol/L (3.4-5.0)
[2018-07-25 07:20] LABS: HEMATOCRIT 24.4 % (37.0-47.0); HEMOGLOBIN 7.9 g/dl (12.5-16.0); MEAN CORPUSCULAR HEMOGLOBIN 31 pg (27.0-31.0); PLATELET COUNT 565 K/mm3 (130-400)
[2018-07-25 07:26] LABS: BAND 25 % (0-10); EOSINOPHIL 2 % (0-4); LYMPHOCYTE 17 % (20.0-51.0); NEUTROPHILS 47 % (42.0-75.2); PLATELET ESTIMATE INCREASED (NORMAL)
[2018-07-25 07:27] LABS: HYPOCHROMIA 1+; STOMATOCYTE 1+
[2018-07-26] VITALS (1102 sets, daily range): BP systolic 109–141; BP diastolic 60–93; PULSE 80–98; TEMP 98.4–100.5; O2SAT 89–100
[2018-07-26 05:06] LABS: ARTERIAL BLD GAS TCO2 CT 30.7; ARTERIAL BLOOD GAS BASE EXCESS 4.6 (-2-2); ARTERIAL BLOOD GAS HCO3 29.3 meq/L (22-26); ARTERIAL BLOOD GAS PCO2 44.9 mmHg (35-45); ARTERIAL BLOOD GAS PO2 104.3 mmHg (80-100); ARTERIAL BLOOD GAS pH 7.43 (7.35-7.45)
[2018-07-26 05:44] LABS: MEAN CELL VOLUME 98 fl (80.0-100.0); MEAN CORPUSCULAR HGB CONC 32 g/dl (33.0-37.0); MEAN PLATELET VOLUME 11.3 fl (7.4-10.4); PLATELET COUNT 663 K/mm3 (130-400); RED BLOOD COUNT 2.38 M/mm3 (4.10-5.30); REDCELL DISTRIBUTION WIDTH-CV 17.2 % (11.5-14.5)
[2018-07-26 05:57] LABS: HEMATOCRIT 23.3 % (37.0-47.0); HEMOGLOBIN 7.4 g/dl (12.5-16.0); MEAN CORPUSCULAR HEMOGLOBIN 31 pg (27.0-31.0)
[2018-07-26 06:06] LABS: ALBUMIN 2.7 gm/dL (3.5-5.0); BILIRUBIN,TOTAL 0.8 mg/dL (0.0-1.0); CALCIUM 8.8 mg/dL (8.4-10.2); CREATININE, serum 0.89 mg/dL (0.52-1.25); MAGNESIUM 1.8 mg/dL (1.6-2.3); POTASSIUM 4.1 mmol/L (3.4-5.0)
[2018-07-26 06:13] LABS: PRE ALBUMIN 12.3 mg/dL (17.6-36.0)
[2018-07-26 07:12] LABS: ANISOCYTOSIS 2+; BAND 14 % (0-10); EOSINOPHIL 3 % (0-4); LYMPHOCYTE 20 % (20.0-51.0); METAMYELOCYTE 5 % (0-0); MYELOCYTE 1 % (0-0); NEUTROPHILS 53 % (42.0-75.2); PLATELET ESTIMATE INCREASED (NORMAL)
[2018-07-26 07:13] LABS: HYPOCHROMIA 2+; TARGET CELLS 1+
[2018-07-26 18:29] LABS: ARTERIAL BLD GAS O2 SATURATION 89.9 % (92-100); ARTERIAL BLD GAS TCO2 CT 23.4; ARTERIAL BLOOD GAS BASE EXCESS -1.4 (-2-2); ARTERIAL BLOOD GAS HCO3 22.4 meq/L (22-26); ARTERIAL BLOOD GAS PCO2 33.4 mmHg (35-45); ARTERIAL BLOOD GAS PO2 61.8 mmHg (80-100); ARTERIAL BLOOD GAS pH 7.44 (7.35-7.45)
[2018-07-27] VITALS (661 sets, daily range): BP systolic 113–147; BP diastolic 65–89; PULSE 74–88; TEMP 98.4–100.4; O2SAT 69–100
[2018-07-27 05:29] LABS: HEMATOCRIT 21.9 % (37.0-47.0); HEMOGLOBIN 7.1 g/dl (12.5-16.0); MEAN CELL VOLUME 97 fl (80.0-100.0); MEAN CORPUSCULAR HEMOGLOBIN 32 pg (27.0-31.0); MEAN CORPUSCULAR HGB CONC 32 g/dl (33.0-37.0); MEAN PLATELET VOLUME 11.3 fl (7.4-10.4); PLATELET COUNT 730 K/mm3 (130-400); RED BLOOD COUNT 2.25 M/mm3 (4.10-5.30); REDCELL DISTRIBUTION WIDTH-CV 17.1 % (11.5-14.5)
[2018-07-27 05:43] LABS: CALCIUM 9.1 mg/dL (8.4-10.2); CREATININE, serum 0.89 mg/dL (0.52-1.25); POTASSIUM 3.9 mmol/L (3.4-5.0)
[2018-07-27 06:16] LABS: BAND 22 % (0-10); BASOPHIL 1 % (0-2); HYPOCHROMIA 1+; LYMPHOCYTE 11 % (20.0-51.0); METAMYELOCYTE 2 % (0-0); NEUTROPHILS 55 % (42.0-75.2); PLATELET ESTIMATE INCREASED (NORMAL)
[2018-07-27 06:17] LABS: ANISOCYTOSIS 2+; ROULEAUX 1+
[2018-07-28] VITALS (705 sets, daily range): BP systolic 136–144; BP diastolic 72–86; PULSE 68–84; TEMP 97.9–98.8; O2SAT 55–100
[2018-07-28 06:03] LABS: CALCIUM 9.1 mg/dL (8.4-10.2); CREATININE, serum 0.87 mg/dL (0.52-1.25); MAGNESIUM 1.9 mg/dL (1.6-2.3); PHOSPHOROUS 3.4 mg/dL (2.5-4.5); POTASSIUM 3.5 mmol/L (3.4-5.0)
[2018-07-28 09:02] LABS: HEMATOCRIT 22.3 % (37.0-47.0); HEMOGLOBIN 7.4 g/dl (12.5-16.0); MEAN CELL VOLUME 98 fl (80.0-100.0); MEAN CORPUSCULAR HEMOGLOBIN 32 pg (27.0-31.0); MEAN CORPUSCULAR HGB CONC 33 g/dl (33.0-37.0); MEAN PLATELET VOLUME 11.8 fl (7.4-10.4); PLATELET COUNT 817 K/mm3 (130-400); RED BLOOD COUNT 2.28 M/mm3 (4.10-5.30); REDCELL DISTRIBUTION WIDTH-CV 16.9 % (11.5-14.5)
[2018-07-28 09:25] LABS: BAND 23 % (0-10); EOSINOPHIL 1 % (0-4); LYMPHOCYTE 14 % (20.0-51.0); NEUTROPHILS 56 % (42.0-75.2); PLATELET ESTIMATE INCREASED (NORMAL)
[2018-07-29] VITALS: BP 135/71; PULSE 69; TEMP 98.6
[2018-07-29 03:39] VITALS: BP 143/65; PULSE 83; TEMP 98.2
[2018-07-29 07:47] LABS: HEMATOCRIT 23.7 % (37.0-47.0); HEMOGLOBIN 7.8 g/dl (12.5-16.0); MEAN CELL VOLUME 96 fl (80.0-100.0); MEAN CORPUSCULAR HEMOGLOBIN 31 pg (27.0-31.0); MEAN CORPUSCULAR HGB CONC 33 g/dl (33.0-37.0); MEAN PLATELET VOLUME 11.1 fl (7.4-10.4); PLATELET COUNT 879 K/mm3 (130-400); RED BLOOD COUNT 2.48 M/mm3 (4.10-5.30); REDCELL DISTRIBUTION WIDTH-CV 16.6 % (11.5-14.5)
[2018-07-29 07:52] LABS: CALCIUM 9.1 mg/dL (8.4-10.2); CREATININE, serum 0.94 mg/dL (0.52-1.25); MAGNESIUM 2.1 mg/dL (1.6-2.3); PHOSPHOROUS 4.6 mg/dL (2.5-4.5); POTASSIUM 4.1 mmol/L (3.4-5.0)
[2018-07-29 09:00] VITALS: BP 117/59; PULSE 73; TEMP 98
[2018-07-29 09:04] LABS: BAND 10 % (0-10); EOSINOPHIL 5 % (0-4); LYMPHOCYTE 21 % (20.0-51.0); NEUTROPHILS 56 % (42.0-75.2); PLATELET ESTIMATE INCREASED (NORMAL); TARGET CELLS 1+
[2018-07-29 12:08] VITALS: BP 112/67; PULSE 74; TEMP 98.3
[2018-07-29 16:53] VITALS: BP 113/69; PULSE 75; TEMP 98.3
[2018-07-29 20:11] VITALS: BP 115/58; PULSE 71; TEMP 98.3
[2018-07-30 00:33] VITALS: BP 132/70; PULSE 71; TEMP 98.5
[2018-07-30 04:05] VITALS: BP 125/68; PULSE 74; TEMP 98.2
[2018-07-30 07:39] VITALS: BP 127/66; PULSE 74; TEMP 98.7
[2018-07-30 11:18] LABS: MEAN CELL VOLUME 98 fl (80.0-100.0); MEAN CORPUSCULAR HGB CONC 32 g/dl (33.0-37.0); MEAN PLATELET VOLUME 11.3 fl (7.4-10.4); PLATELET COUNT 844 K/mm3 (130-400); RED BLOOD COUNT 2.23 M/mm3 (4.10-5.30); REDCELL DISTRIBUTION WIDTH-CV 16.6 % (11.5-14.5)
[2018-07-30 11:24] LABS: HEMATOCRIT 21.8 % (37.0-47.0); MEAN CORPUSCULAR HEMOGLOBIN 31 pg (27.0-31.0)
[2018-07-30 11:26] LABS: CALCIUM 8.6 mg/dL (8.4-10.2); CREATININE, serum 0.86 mg/dL (0.52-1.25); POTASSIUM 3.9 mmol/L (3.4-5.0)
[2018-07-30 11:59] LABS: BAND 17 % (0-10); EOSINOPHIL 2 % (0-4); LYMPHOCYTE 20 % (20.0-51.0); NEUTROPHILS 52 % (42.0-75.2); PLATELET ESTIMATE INCREASED (NORMAL)
[2018-07-30 12:00] LABS: HYPOCHROMIA 1+
[2018-07-30 20:00] VITALS: BP 136/69; PULSE 69; TEMP 98.9
[2018-07-31 04:00] VITALS: BP 129/56; PULSE 76; TEMP 99.8
[2018-07-31 07:29] LABS: CALCIUM 8.8 mg/dL (8.4-10.2); CREATININE, serum 0.88 mg/dL (0.52-1.25); MAGNESIUM 1.9 mg/dL (1.6-2.3); PHOSPHOROUS 4.9 mg/dL (2.5-4.5)
[2018-07-31 08:00] VITALS: BP 130/66; PULSE 74; TEMP 98.3
[2018-07-31 09:53] LABS: MEAN CELL VOLUME 99 fl (80.0-100.0); MEAN CORPUSCULAR HGB CONC 33 g/dl (33.0-37.0); MEAN PLATELET VOLUME 11.4 fl (7.4-10.4); PLATELET COUNT 832 K/mm3 (130-400); RED BLOOD COUNT 2.21 M/mm3 (4.10-5.30)
[2018-07-31 10:00] LABS: HEMATOCRIT 21.8 % (37.0-47.0); HEMOGLOBIN 7.2 g/dl (12.5-16.0); MEAN CORPUSCULAR HEMOGLOBIN 33 pg (27.0-31.0)
[2018-07-31 10:41] LABS: ANISOCYTOSIS 1+; BAND 18 % (0-10); BASOPHIL 3 % (0-2); LYMPHOCYTE 23 % (20.0-51.0); NEUTROPHILS 40 % (42.0-75.2); PLATELET ESTIMATE NORMAL (NORMAL); ROULEAUX 1+
[2018-07-31 12:00] VITALS: BP 115/61; PULSE 69; TEMP 98.3
[2018-07-31 16:00] VITALS: BP 136/69; PULSE 69; TEMP 98.3
[2018-08-01 00:21] VITALS: BP 125/75; PULSE 72; TEMP 98.4
[2018-08-01 07:06] LABS: CALCIUM 9.1 mg/dL (8.4-10.2); CREATININE, serum 0.94 mg/dL (0.52-1.25); POTASSIUM 4.5 mmol/L (3.4-5.0)
[2018-08-01 07:18] LABS: MEAN CELL VOLUME 96 fl (80.0-100.0); MEAN CORPUSCULAR HGB CONC 33 g/dl (33.0-37.0); MEAN PLATELET VOLUME 11.4 fl (7.4-10.4); PLATELET COUNT 783 K/mm3 (130-400); RED BLOOD COUNT 2.24 M/mm3 (4.10-5.30)
[2018-08-01 07:26] LABS: HEMATOCRIT 21.6 % (37.0-47.0); HEMOGLOBIN 7.1 g/dl (12.5-16.0); MEAN CORPUSCULAR HEMOGLOBIN 32 pg (27.0-31.0)
[2018-08-01 07:53] VITALS: BP 116/57; PULSE 67; TEMP 98.2
[2018-08-01 10:55] LABS: ANISOCYTOSIS 1+; BAND 17 % (0-10); BASOPHIL 1 % (0-2); HYPOCHROMIA 1+; LYMPHOCYTE 26 % (20.0-51.0); NEUTROPHILS 50 % (42.0-75.2)
[2018-08-01 12:00] VITALS: BP 108/53; PULSE 82; TEMP 98.3
[2018-08-01 17:04] VITALS: BP 118/63; PULSE 74; TEMP 98.1
[2018-08-01 21:00] VITALS: BP 125/55; PULSE 85; TEMP 99
[2018-08-02 00:30] VITALS: BP 123/58; PULSE 85; TEMP 99.5
[2018-08-02 04:55] VITALS: BP 120/62; PULSE 82; TEMP 98.8
[2018-08-02 07:13] LABS: MEAN CELL VOLUME 97 fl (80.0-100.0); MEAN CORPUSCULAR HGB CONC 33 g/dl (33.0-37.0); MEAN PLATELET VOLUME 11.1 fl (7.4-10.4); PLATELET COUNT 737 K/mm3 (130-400); RED BLOOD COUNT 2.16 M/mm3 (4.10-5.30); REDCELL DISTRIBUTION WIDTH-CV 17.2 % (11.5-14.5)
[2018-08-02 07:14] LABS: MEAN CORPUSCULAR HEMOGLOBIN 32 pg (27.0-31.0)
[2018-08-02 07:41] LABS: BILIRUBIN,TOTAL 0.4 mg/dL (0.0-1.0); CREATININE, serum 1.05 mg/dL (0.52-1.25); MAGNESIUM 1.9 mg/dL (1.6-2.3); PHOSPHOROUS 5.8 mg/dL (2.5-4.5); POTASSIUM 3.9 mmol/L (3.4-5.0); TOTAL PROTEIN 8.1 gm/dL (6.4-8.2)
[2018-08-02 07:48] LABS: PRE ALBUMIN 21.3 mg/dL (17.6-36.0)
[2018-08-02 08:00] VITALS: BP 112/50; PULSE 63; TEMP 98.7
[2018-08-02 08:20] LABS: ANISOCYTOSIS 1+; BAND 9 % (0-10); EOSINOPHIL 6 % (0-4); LYMPHOCYTE 26 % (20.0-51.0); METAMYELOCYTE 1 % (0-0); MYELOCYTE 1 % (0-0); NEUTROPHILS 44 % (42.0-75.2); PLATELET ESTIMATE INCREASED (NORMAL); ROULEAUX 1+
[2018-08-02 10:50] VITALS: BP 117/65; PULSE 81; TEMP 98.7
[2018-08-02 16:00] VITALS: BP 127/61; PULSE 76; TEMP 99.1
[2018-08-02 20:54] VITALS: BP 131/62; PULSE 76; TEMP 97.5
[2018-08-03] VITALS (7 sets, daily range): BP systolic 89–143; BP diastolic 44–73; PULSE 51–87; TEMP 97.5–981
[2018-08-03 09:28] LABS: MEAN CELL VOLUME 96 fl (80.0-100.0); MEAN CORPUSCULAR HGB CONC 33 g/dl (33.0-37.0); MEAN PLATELET VOLUME 10.8 fl (7.4-10.4); PLATELET COUNT 685 K/mm3 (130-400); RED BLOOD COUNT 2.21 M/mm3 (4.10-5.30); REDCELL DISTRIBUTION WIDTH-CV 17.2 % (11.5-14.5)
[2018-08-03 09:32] LABS: HEMATOCRIT 21.3 % (37.0-47.0); MEAN CORPUSCULAR HEMOGLOBIN 32 pg (27.0-31.0)
[2018-08-03 09:39] LABS: CALCIUM 9.4 mg/dL (8.4-10.2); CREATININE, serum 1.02 mg/dL (0.52-1.25); MAGNESIUM 1.5 mg/dL (1.6-2.3); POTASSIUM 3.6 mmol/L (3.4-5.0)
[2018-08-03 09:56] LABS: ANISOCYTOSIS 1+; BAND 18 % (0-10); BASOPHIL 3 % (0-2); EOSINOPHIL 3 % (0-4); HYPOCHROMIA 1+; LYMPHOCYTE 25 % (20.0-51.0); METAMYELOCYTE 2 % (0-0); NEUTROPHILS 42 % (42.0-75.2); PLATELET ESTIMATE INCREASED (NORMAL)
[2018-08-04 00:16] VITALS: BP 116/59; PULSE 81; TEMP 98.5
[2018-08-04 04:00] VITALS: BP 120/78; PULSE 78; TEMP 98.4
[2018-08-04 07:28] LABS: MEAN CELL VOLUME 99 fl (80.0-100.0); MEAN CORPUSCULAR HGB CONC 32 g/dl (33.0-37.0); MEAN PLATELET VOLUME 10.8 fl (7.4-10.4); PLATELET COUNT 656 K/mm3 (130-400)
[2018-08-04 07:34] LABS: CALCIUM 9.4 mg/dL (8.4-10.2); CREATININE, serum 0.95 mg/dL (0.52-1.25); MAGNESIUM 1.8 mg/dL (1.6-2.3); POTASSIUM 3.7 mmol/L (3.4-5.0)
[2018-08-04 07:36] LABS: HEMATOCRIT 20.8 % (37.0-47.0); MEAN CORPUSCULAR HEMOGLOBIN 32 pg (27.0-31.0)
[2018-08-04 07:37] LABS: HEMOGLOBIN 6.7 g/dl (12.5-16.0)
[2018-08-04 08:04] LABS: ANISOCYTOSIS 1+; BAND 3 % (0-10); BASOPHIL 1 % (0-2); EOSINOPHIL 3 % (0-4); HYPOCHROMIA 1+; LYMPHOCYTE 34 % (20.0-51.0); METAMYELOCYTE 3 % (0-0); NEUTROPHILS 34 % (42.0-75.2); PLATELET ESTIMATE INCREASED (NORMAL); TARGET CELLS 1+
[2018-08-04 09:03] VITALS: BP 89/45; PULSE 97; TEMP 98.6
[2018-08-04] MEDS ORDERED: AMOXICILLIN 8751 TAB PO (10:03)
[2018-08-04] MEDS ORDERED: NORCO 325 MG-51 TAB PO (10:07)
[2018-08-04] MEDS ORDERED: TOPROL XL 25MG25 MG PO (10:42)
[2018-08-04 11:57] VITALS: BP 110/63; PULSE 81; TEMP 98.2
[2018-08-04 14:15] VITALS: BP 118/68; PULSE 78; TEMP 98.5
== END 2018-08-04 19:40 | disposition home or self-care (01) | DRG 853 ==
LOC: COL.ER 06:46 → SURG 08:25 → ICU 10:52 → SURG 10:53 → ICU 07-17 03:24 → SURG 07-17 03:24 → ICU 07-17 03:25 → SURG 07-28 18:33
PROVIDERS: Emergency Medicine; Family Medicine; Internal Medicine; Internal Medicine Pulmonary Disease; Nurse Anesthetist, Certified Registered; Nurse Practitioner Family; Physician Assistant; Surgery
PROC: 0DNU0ZZ Release Omentum, Open Approach (ICD-10-PCS; 2018-07-17)
PROC: 0BH18EZ Insertion of Endotracheal Airway into Trachea, Via Natural or Artificial Opening Endoscopic (ICD-10-PCS; 2018-07-17)
PROC: 5A1955Z Respiratory Ventilation, Greater than 96 Consecutive Hours (ICD-10-PCS; 2018-07-17)
PROC: 0DTF0ZZ Resection of Right Large Intestine, Open Approach (ICD-10-PCS; principal; 2018-07-17 06:30)
PROC: 0D1B0Z4 Bypass Ileum to Cutaneous, Open Approach (ICD-10-PCS; 2018-07-17 06:30)
PROC: 0DNB0ZZ Release Ileum, Open Approach (ICD-10-PCS; 2018-07-17 06:30)
PROC: 0D9W30Z Drainage of Peritoneum with Drainage Device, Percutaneous Approach (ICD-10-PCS; 2018-07-21)
PROC: 0B9B8ZX Drainage of Left Lower Lobe Bronchus, Via Natural or Artificial Opening Endoscopic, Diagnostic (ICD-10-PCS; 2018-07-22)
PROC: 0B988ZX Drainage of Left Upper Lobe Bronchus, Via Natural or Artificial Opening Endoscopic, Diagnostic (ICD-10-PCS; 2018-07-22)
PROC: 0B958ZX Drainage of Right Middle Lobe Bronchus, Via Natural or Artificial Opening Endoscopic, Diagnostic (ICD-10-PCS; 2018-07-22)
PROC: 0B968ZX Drainage of Right Lower Lobe Bronchus, Via Natural or Artificial Opening Endoscopic, Diagnostic (ICD-10-PCS; 2018-07-22)
PROC: 0B948ZX Drainage of Right Upper Lobe Bronchus, Via Natural or Artificial Opening Endoscopic, Diagnostic (ICD-10-PCS; 2018-07-22)
DX: A41.9 Sepsis, unspecified organism (principal); K63.1 Perforation of intestine (nontraumatic); K65.0 Generalized (acute) peritonitis; K55.031 Focal (segmental) acute (reversible) ischemia of large intestine; J96.01 Acute respiratory failure with hypoxia; R65.21 Severe sepsis with septic shock; I21.A1 Myocardial infarction type 2; E87.1 Hypo-osmolality and hyponatremia; N17.9 Acute kidney failure, unspecified; J95.851 Ventilator associated pneumonia; D62 Acute posthemorrhagic anemia; E44.0 Moderate protein-calorie malnutrition; I50.22 Chronic systolic (congestive) heart failure; J98.11 Atelectasis; Z68.1 Body mass index [BMI] 19.9 or less, adult; J90 Pleural effusion, not elsewhere classified; E87.6 Hypokalemia; K66.0 Peritoneal adhesions (postprocedural) (postinfection); I10 Essential (primary) hypertension; J44.9 Chronic obstructive pulmonary disease, unspecified; Z87.891 Personal history of nicotine dependence; I11.0 Hypertensive heart disease with heart failure; R73.9 Hyperglycemia, unspecified
CPT/HCPCS: OP; 99222-AI; 99232-AI; 99233-AI; 99239; A4217; C1751; C9113; J0330; J0610; J0692; J1170; J1450; J1650; J1940; J2250; J2405; J2543; J2704; J2765; J2997; J3010; J3370; J3411; J3475; J3480; J7030; J7040; J7050; J7060; J7120; J7131; P9016; Q9967

== ENCOUNTER 2018-08-05 09:39 | Outpatient (CLI) | payer OTHER ==
[~2018-08-05 09:39] MED LIST changes: +AMOXICILLIN 8751 TAB PO; +COZAAR 25MG25 MG/TAB PO; +PROAIR HFA0.09 MG/AC IH; +TOPROL XL 25MG25 MG PO
[2018-08-05 10:52] VITALS: BP 119/59; PULSE 79; TEMP 99.2
[2018-08-05 11:12] VITALS: BP 121/55; PULSE 73; TEMP 98.9
[2018-08-05 11:30] VITALS: BP 124/72; PULSE 74; TEMP 98.7
[2018-08-05 12:10] VITALS: BP 132/66; PULSE 84; TEMP 98.4
[2018-08-05 13:00] VITALS: BP 110/60; PULSE 73; TEMP 99.2
== END 2018-08-05 14:00 | disposition home or self-care (01) ==
LOC: COL.LAB 09:39 → SURG 09:39 → JCC 10:05 → COL.LAB 14:00
DX: D62 Acute posthemorrhagic anemia (principal); D47.3 Essential (hemorrhagic) thrombocythemia; I25.2 Old myocardial infarction
CPT/HCPCS: OP; P9016

== ENCOUNTER 2018-08-11 17:31 | Emergency (ER) | payer OTHER ==
[~2018-08-11] VITALS: Ht 160 cm; Wt 46.4 kg
[2018-08-11 17:33] VITALS: TEMP 98
[2018-08-11 17:56] LABS: BASO # 0.1 (0.0-0.2); BASO % 0.7 % (0.0-2.0); EOS # 0.6 (0.0-0.7); EOS % 3.6 % (0-4.0); GRAN # 11.1 (1.4-6.5); GRAN % 67.1 % (42.2-75.2); HEMOGLOBIN 10.4 g/dl (12.5-16.0); LYMPH # 3.1 (1.2-3.4); LYMPH % 18.5 % (20.0-51.0); MEAN CELL VOLUME 97 fl (80.0-100.0); MEAN CORPUSCULAR HEMOGLOBIN 31 pg (27.0-31.0); MEAN CORPUSCULAR HGB CONC 31 g/dl (33.0-37.0); MONO # 1.6 (0.1-0.6); MONO % 9.5 % (1.7-9.3); PLATELET COUNT 658 K/mm3 (130-400); RED BLOOD COUNT 3.41 M/mm3 (4.10-5.30); REDCELL DISTRIBUTION WIDTH-CV 15.7 % (11.5-14.5)
[2018-08-11 17:58] LABS: HEMATOCRIT 33.1 % (37.0-47.0)
[2018-08-11 18:43] LABS: ALBUMIN 4.3 gm/dL (3.5-5.0); BILIRUBIN,TOTAL 0.5 mg/dL (0.0-1.0); CALCIUM 12.4 mg/dL (8.4-10.2); CREATININE, serum 1.54 mg/dL (0.52-1.25); MAGNESIUM 1.7 mg/dL (1.6-2.3); PHOSPHOROUS 4.9 mg/dL (2.5-4.5); POTASSIUM 5.2 mmol/L (3.4-5.0); TOTAL PROTEIN 9.9 gm/dL (6.4-8.2)
[2018-08-11 19:37] LABS: COLLECTION METHOD CLEAN CATCH
[2018-08-11 19:55] LABS: MUCOUS Present /lpf; PH 5 (5-8); SQUAMOUS EPITHELIAL 0-2 /hpf; URINE APPEARANCE Clear; URINE BACTERIA Rare /hpf; URINE BILIRUBIN Negative (NEGATIVE); URINE BLOOD Negative (NEGATIVE); URINE COLOR Yellow; URINE GLUCOSE Negative (NEGATIVE); URINE KETONE Negative (NEGATIVE); URINE LEUKOCYTE ESTERASE Negative (NEGATIVE); URINE NITRATE Negative (NEGATIVE); URINE PROTEIN(semi-quant) Negative (NEGATIVE); URINE RBC 0-2 /hpf; URINE UROBILINOGEN Negative (NEGATIVE)
[2018-08-11] MEDS ORDERED: SODIUM BICARBO650 MG PO (19:56)
[2018-08-11 22:50] VITALS: BP 124/74; PULSE 80
[2018-08-12 16:27] LABS: PTH,INTACT 14.6 pg/mL (6.6-88.9)
== END 2018-08-11 22:50 | disposition home or self-care (01) ==
LOC: COL.ER 17:31
PROVIDERS: Emergency Medicine
DX: E87.5 Hyperkalemia (principal); E87.2 Acidosis; E83.39 Other disorders of phosphorus metabolism; I10 Essential (primary) hypertension; Z98.890 Other specified postprocedural states
CPT/HCPCS: J1170; J2430; J7030

== ENCOUNTER → 2018-08-23 | Outpatient (CLI) | payer OTHER ==
[~2018-08-23] MED LIST changes: +SODIUM BICARBO650 MG PO
== END ==
LOC: MHCPAIN 10:31
DX: G89.29 Other chronic pain (principal); M47.817 Spondylosis without myelopathy or radiculopathy, lumbosacral region; M53.3 Sacrococcygeal disorders, not elsewhere classified
CPT/HCPCS: G0463

== ENCOUNTER 2018-11-02 17:10 | Emergency (ER) | payer OTHER ==
[~2018-11-02] VITALS: Ht 160 cm; Wt 45.5 kg
[2018-11-02 17:18] VITALS: TEMP 98
[2018-11-02] MEDS ORDERED: LIORESAL 1010 MG/TAB PO (17:47)
[2018-11-02 18:14] LABS: BASO # 0.1 (0.0-0.2); BASO % 0.6 % (0.0-2.0); EOS # 0.1 (0.0-0.7); EOS % 0.9 % (0-4.0); GRAN # 6.7 (1.4-6.5); GRAN % 65.5 % (42.2-75.2); HEMATOCRIT 43.2 % (37.0-47.0); HEMOGLOBIN 15.1 g/dl (12.5-16.0); LYMPH # 2.4 (1.2-3.4); LYMPH % 23.8 % (20.0-51.0); MEAN CELL VOLUME 91 fl (80.0-100.0); MEAN CORPUSCULAR HEMOGLOBIN 32 pg (27.0-31.0); MEAN CORPUSCULAR HGB CONC 35 g/dl (33.0-37.0); MEAN PLATELET VOLUME 10.6 fl (7.4-10.4); MONO # 0.9 (0.1-0.6); MONO % 8.7 % (1.7-9.3); PLATELET COUNT 189 K/mm3 (130-400); RED BLOOD COUNT 4.73 M/mm3 (4.10-5.30); REDCELL DISTRIBUTION WIDTH-CV 14.6 % (11.5-14.5)
[2018-11-02 18:38] LABS: C-REACTIVE PROTEIN 0.8 mg/dL (0.0-0.9); LIPASE 310 U/L (23-300)
[2018-11-02 18:42] LABS: ALCOHOL(ethanol),MEDICAL < 10 mg/dL
[2018-11-02 18:49] LABS: TROPONIN-I 0.027 ng/mL (0.000-0.034)
[2018-11-02 18:55] LABS: COLLECTION METHOD CLEAN CATCH
[2018-11-02 19:15] LABS: HYALINE CAST >12 /lpf; MUCOUS Present /lpf; PH 5 (5-8); URINE APPEARANCE Cloudy; URINE BACTERIA None Seen /hpf; URINE BILIRUBIN Negative (NEGATIVE); URINE BLOOD 1+ (NEGATIVE); URINE COLOR Yellow; URINE GLUCOSE Negative (NEGATIVE); URINE KETONE Trace (NEGATIVE); URINE LEUKOCYTE ESTERASE Trace (NEGATIVE); URINE NITRATE Negative (NEGATIVE); URINE PROTEIN(semi-quant) 2+ (NEGATIVE)
[2018-11-02 19:25] LABS: ALBUMIN 5.2 gm/dL (3.5-5.0); BILIRUBIN,TOTAL 0.6 mg/dL (0.0-1.0); CALCIUM 9.1 mg/dL (8.4-10.2); POTASSIUM 3.6 mmol/L (3.4-5.0); TOTAL PROTEIN 9.9 gm/dL (6.4-8.2)
[2018-11-02 19:44] LABS: CREATININE, serum 4.16 mg/dL (0.52-1.25)
[2018-11-02] MEDS ORDERED: PREDNISONE20 MG PO (22:11)
[2018-11-02] MEDS ORDERED: DOXYCYCLINE 10100 MG PO (22:11)
[2018-11-02 22:57] VITALS: BP 128/73; PULSE 83
== END 2018-11-02 22:57 | disposition home or self-care (01) ==
LOC: COL.ER 17:10
PROVIDERS: Emergency Medicine; Physician Assistant
DX: J96.00 Acute respiratory failure, unspecified whether with hypoxia or hypercapnia (principal); J44.1 Chronic obstructive pulmonary disease with (acute) exacerbation; I10 Essential (primary) hypertension; I25.2 Old myocardial infarction; M54.9 Dorsalgia, unspecified; G89.29 Other chronic pain; F17.210 Nicotine dependence, cigarettes, uncomplicated; Z90.81 Acquired absence of spleen; Z87.11 Personal history of peptic ulcer disease
CPT/HCPCS: J1170; J2405; J7030; J7512

== ENCOUNTER → 2018-11-21 | Outpatient (CLI) | payer OTHER ==
[~2018-11-21] MED LIST changes: +DOXYCYCLINE 10100 MG PO
== END ==
LOC: MHCPAIN 09:50
DX: G89.29 Other chronic pain (principal); M47.817 Spondylosis without myelopathy or radiculopathy, lumbosacral region; M53.3 Sacrococcygeal disorders, not elsewhere classified
CPT/HCPCS: G0463

== ENCOUNTER → 2019-01-09 | Outpatient (CLI) | payer OTHER | LOC: COL.PUL 11:06 | DX: R06.02 Shortness of breath (principal); Z87.891 Personal history of nicotine dependence ==

== ENCOUNTER → 2019-06-20 | Outpatient (CLI) | payer OTHER | LOC: MHCPAIN 12:35 | DX: G89.29 Other chronic pain (principal); M47.817 Spondylosis without myelopathy or radiculopathy, lumbosacral region; M53.3 Sacrococcygeal disorders, not elsewhere classified | CPT/HCPCS: G0463 ==

== ENCOUNTER → 2019-09-18 | Outpatient (CLI) | payer OTHER | LOC: MC.RAD 10:16 | DX: Z12.31 Encounter for screening mammogram for malignant neoplasm of breast (principal) ==

== ENCOUNTER 2019-12-01 07:05 | Emergency (ER) | payer OTHER ==
[~2019-12-01] VITALS: Ht 160 cm; Wt 46.4 kg
[2019-12-01 07:06] VITALS: BP 127/84; TEMP 97.9
[2019-12-01 07:37] LABS: HEMOGLOBIN 10.8 g/dl (12.5-16.0); MEAN CELL VOLUME 102 fl (80.0-100.0); MEAN CORPUSCULAR HEMOGLOBIN 35 pg (27.0-31.0); MEAN CORPUSCULAR HGB CONC 34 g/dl (33.0-37.0); MEAN PLATELET VOLUME 10.1 fl (7.4-10.4); PLATELET COUNT 250 K/mm3 (130-400); REDCELL DISTRIBUTION WIDTH-CV 12.8 % (11.5-14.5)
[2019-12-01 07:42] LABS: HEMATOCRIT 31.6 % (37.0-47.0)
[2019-12-01 07:45] LABS: ALBUMIN 4.8 gm/dL (3.5-5.0); BILIRUBIN,TOTAL 0.9 mg/dL (0.0-1.0); CALCIUM 10.1 mg/dL (8.4-10.2); CREATININE, serum 1.07 (0.52-1.25); POTASSIUM 3.8 mmol/L (3.4-5.0); TOTAL PROTEIN 8.3 gm/dL (6.4-8.2)
[2019-12-01 07:46] LABS: INR 0.9 (0.8-3.0); PROTHROMBIN TIME 10.9 SECONDS (9.7-12.8)
[2019-12-01 08:48] LABS: BAND 2 % (0-10); LYMPHOCYTE 17 % (20.0-51.0); NEUTROPHILS 73 % (42.0-75.2); PLATELET ESTIMATE NORMAL (NORMAL)
[2019-12-01] MEDS ORDERED: NORCO 325 MG-51 TAB PO (09:49)
[2019-12-01] MEDS ORDERED: ZOFRAN ODT8 MG PO (09:52)
[2019-12-01 10:20] VITALS: PULSE 93
== END 2019-12-01 10:27 | disposition home or self-care (01) ==
LOC: COL.ER 07:05
PROVIDERS: Emergency Medicine
DX: S72.111A Displaced fracture of greater trochanter of right femur, initial encounter for closed fracture (principal); J44.9 Chronic obstructive pulmonary disease, unspecified; Z93.3 Colostomy status; Z87.891 Personal history of nicotine dependence; W01.0XXA Fall on same level from slipping, tripping and stumbling without subsequent striking against object, initial encounter; Y92.009 Unspecified place in unspecified non-institutional (private) residence as the place of occurrence of the external cause
CPT/HCPCS: J2405; J3010

== ENCOUNTER 2020-04-23 14:23 | Emergency (ER) | payer MEDICAID ==
[~2020-04-23] VITALS: Ht 160 cm; Wt 47.7 kg
[~2020-04-23 14:23] MED LIST changes: +ZOFRAN ODT8 MG PO
[2020-04-23 14:48] VITALS: TEMP 98.8
[2020-04-23] MEDS ORDERED: DOXYCYCLINE 10100 MG PO (16:32)
[2020-04-23] MEDS ORDERED: PREDNISONE20 MG PO (16:32)
[2020-04-23] MEDS ORDERED: NORCO 325 MG-51 TAB PO (16:32)
[2020-04-23 17:30] VITALS: BP 123/85; PULSE 106
== END 2020-04-23 17:30 | disposition home or self-care (01) ==
LOC: COL.ER 14:23
DX: J44.1 Chronic obstructive pulmonary disease with (acute) exacerbation (principal); J40 Bronchitis, not specified as acute or chronic; I10 Essential (primary) hypertension; G89.29 Other chronic pain; M54.6 Pain in thoracic spine; Z87.891 Personal history of nicotine dependence; Z79.52 Long term (current) use of systemic steroids; Z93.2 Ileostomy status
CPT/HCPCS: J7512

== ENCOUNTER 2020-05-12 14:06 | Emergency (ER) | payer MEDICAID ==
[~2020-05-12] VITALS: Ht 160 cm; Wt 44.5 kg
[2020-05-12 14:26] VITALS: TEMP 98.5
[2020-05-12 15:04] LABS: BASO # 0.1 (0.0-0.2); BASO % 0.4 % (0.0-2.0); EOS # 0.1 (0.0-0.7); EOS % 0.5 % (0-4.0); GRAN # 8.2 (1.4-6.5); GRAN % 70.2 % (42.2-75.2); HEMATOCRIT 40.6 % (37.0-47.0); HEMOGLOBIN 13.8 g/dl (12.5-16.0); LYMPH # 2.4 (1.2-3.4); LYMPH % 20.4 % (20.0-51.0); MEAN CELL VOLUME 99 fl (80.0-100.0); MEAN CORPUSCULAR HEMOGLOBIN 34 pg (27.0-31.0); MEAN CORPUSCULAR HGB CONC 34 g/dl (33.0-37.0); MEAN PLATELET VOLUME 10.7 fl (7.4-10.4); MONO # 0.9 (0.1-0.6); PLATELET COUNT 349 K/mm3 (130-400); RED BLOOD COUNT 4.11 M/mm3 (4.10-5.30); REDCELL DISTRIBUTION WIDTH-CV 13.8 % (11.5-14.5)
[2020-05-12 15:19] LABS: ALANINE AMINOTRANSFERASE 19 U/L (4-34); ALKALINE PHOSPHATASE 115 U/L (50-136); ANION GAP 15 mmol/L (7-16); AST,SGOT 27 U/L (15-37); BILIRUBIN,TOTAL 0.7 mg/dL (0.0-1.0); BLOOD UREA NITROGEN 38 mg/dL (7-17); C-REACTIVE PROTEIN 1.6 mg/dL (0.0-0.9); CALCIUM 10.9 mg/dL (8.4-10.2); CARBON DIOXIDE 23 mmol/L (22-30); CHLORIDE 96 mmol/L (98-107); CREATINE KINASE 60 U/L (30-135); CREATININE, serum 3.35 (0.52-1.25); GLUCOSE 167 mg/dL (74-106); POTASSIUM 3.9 mmol/L (3.4-5.0); SODIUM 133 mmol/L (137-145); TOTAL PROTEIN 9.3 gm/dL (6.4-8.2)
[2020-05-12 15:28] LABS: TROPONIN-I < 0.012 ng/mL (0.000-0.035)
[2020-05-12] MEDS ORDERED: DOXYCYCLINE 10100 MG PO (17:51)
[2020-05-12] MEDS ORDERED: NORCO 325 MG-51 TAB PO (17:51)
[2020-05-12 18:00] VITALS: BP 141/84; PULSE 89
== END 2020-05-12 18:23 | disposition left against medical advice (07) ==
LOC: COL.ER 14:06
PROVIDERS: Emergency Medicine
DX: J44.1 Chronic obstructive pulmonary disease with (acute) exacerbation (principal); I10 Essential (primary) hypertension; N17.9 Acute kidney failure, unspecified; Z87.891 Personal history of nicotine dependence
CPT/HCPCS: J7030

== ENCOUNTER → 2020-09-11 | Outpatient (CLI) | payer MEDICAID | LOC: COL.RAD 08:52 | DX: J43.9 Emphysema, unspecified (principal); J98.11 Atelectasis; J18.1 Lobar pneumonia, unspecified organism ==

== ENCOUNTER 2020-09-12 12:41 | Emergency (ER) | payer MEDICAID ==
[~2020-09-12] VITALS: Ht 160 cm; Wt 46.8 kg
[2020-09-12 12:50] VITALS: TEMP 98.4
[2020-09-12] MEDS ORDERED: CELEXA 20MG20 MG/TAB PO (13:05)
[2020-09-12 13:35] LABS: BASO # 0.1 (0.0-0.2); BASO % 0.8 % (0.0-2.0); EOS # 0.2 (0.0-0.7); EOS % 1.4 % (0-4.0); GRAN # 8.3 (1.4-6.5); GRAN % 64.6 % (42.2-75.2); HEMOGLOBIN 12.1 g/dl (12.5-16.0); LYMPH # 2.9 (1.2-3.4); LYMPH % 22.4 % (20.0-51.0); MEAN CELL VOLUME 100 fl (80.0-100.0); MEAN CORPUSCULAR HEMOGLOBIN 34 pg (27.0-31.0); MEAN CORPUSCULAR HGB CONC 34 g/dl (33.0-37.0); MEAN PLATELET VOLUME 9.7 fl (7.4-10.4); MONO # 1.3 (0.1-0.6); MONO % 10.4 % (1.7-9.3); PLATELET COUNT 294 K/mm3 (130-400)
[2020-09-12 13:47] LABS: BILIRUBIN,TOTAL 0.5 mg/dL (0.0-1.0); CALCIUM 10.4 mg/dL (8.4-10.2); CREATININE, serum 0.86 (0.52-1.25); POTASSIUM 4.1 mmol/L (3.4-5.0); TOTAL PROTEIN 8.8 gm/dL (6.4-8.2)
[2020-09-12 14:33] LABS: C-REACTIVE PROTEIN 1.1 mg/dL (0.0-0.9)
[2020-09-12] MEDS ORDERED: DOXYCYCLINE 10100 MG PO (15:35)
[2020-09-12] MEDS ORDERED: NORCO 325 MG-51 TAB PO (15:35)
[2020-09-12 15:37] VITALS: BP 167/95; PULSE 85
== END 2020-09-12 15:46 | disposition home or self-care (01) ==
LOC: COL.ER 12:41
PROVIDERS: Physician Assistant
DX: S22.31XA Fracture of one rib, right side, initial encounter for closed fracture (principal); J44.9 Chronic obstructive pulmonary disease, unspecified; F17.210 Nicotine dependence, cigarettes, uncomplicated; X58.XXXA Exposure to other specified factors, initial encounter
CPT/HCPCS: J7030

== ENCOUNTER → 2020-11-03 | Outpatient (CLI) | payer OTHER | LOC: COL.RAD 08:56 | DX: Z02.71 Encounter for disability determination (principal); M51.36 Other intervertebral disc degeneration, lumbar region; M47.816 Spondylosis without myelopathy or radiculopathy, lumbar region ==

== ENCOUNTER 2020-12-05 09:31 | Emergency (ER) | payer MEDICAID ==
[~2020-12-05] VITALS: Ht 160 cm; Wt 45.5 kg
[2020-12-05 09:39] VITALS: TEMP 98.7
[2020-12-05] MEDS ORDERED: PREDNISONE20 MG PO (10:30)
[2020-12-05] MEDS ORDERED: NORCO 325 MG-51 TAB PO (10:30)
[2020-12-05] MEDS ORDERED: ZITHROMAX Z PA250 MG PO (10:30)
[2020-12-05 10:45] VITALS: BP 132/89; PULSE 115
== END 2020-12-05 10:45 | disposition home or self-care (01) ==
LOC: COL.ER 09:31
DX: J44.1 Chronic obstructive pulmonary disease with (acute) exacerbation (principal); F17.200 Nicotine dependence, unspecified, uncomplicated; Z79.51 Long term (current) use of inhaled steroids

== ENCOUNTER 2020-12-10 07:43 | Emergency (ER) | payer MEDICAID ==
[~2020-12-10] VITALS: Ht 160 cm; Wt 46.8 kg
[~2020-12-10 07:43] MED LIST changes: +ZITHROMAX Z PA250 MG PO
[2020-12-10 07:52] VITALS: TEMP 98.3
[2020-12-10 08:45] LABS: BASO # 0.1 (0.0-0.2); BASO % 0.5 % (0.0-2.0); EOS # 0.3 (0.0-0.7); EOS % 2.6 % (0-4.0); GRAN # 6.5 (1.4-6.5); GRAN % 53.4 % (42.2-75.2); HEMOGLOBIN 10.5 g/dl (12.5-16.0); LYMPH # 3.7 (1.2-3.4); LYMPH % 30.5 % (20.0-51.0); MEAN CELL VOLUME 103 fl (80.0-100.0); MEAN CORPUSCULAR HEMOGLOBIN 33 pg (27.0-31.0); MEAN CORPUSCULAR HGB CONC 32 g/dl (33.0-37.0); MEAN PLATELET VOLUME 9.9 fl (7.4-10.4); MONO # 1.5 (0.1-0.6); MONO % 12.4 % (1.7-9.3); PLATELET COUNT 267 K/mm3 (130-400); RED BLOOD COUNT 3.19 M/mm3 (4.10-5.30); REDCELL DISTRIBUTION WIDTH-CV 13.5 % (11.5-14.5)
[2020-12-10 08:54] LABS: ALANINE AMINOTRANSFERASE 11 U/L (4-34); ALBUMIN 4.3 gm/dL (3.5-5.0); ALKALINE PHOSPHATASE 60 U/L (50-136); ANION GAP 10 mmol/L (7-16); AST,SGOT 20 U/L (15-37); BILIRUBIN,TOTAL 0.3 mg/dL (0.0-1.0); BLOOD UREA NITROGEN 28 mg/dL (7-17); CALCIUM 9.6 mg/dL (8.4-10.2); CARBON DIOXIDE 20 mmol/L (22-30); CHLORIDE 104 mmol/L (98-107); CREATININE, serum 1.05 (0.52-1.25); GLUCOSE 76 mg/dL (74-106); POTASSIUM 4.7 mmol/L (3.4-5.0); SODIUM 134 mmol/L (137-145); TOTAL PROTEIN 7.5 gm/dL (6.4-8.2)
[2020-12-10 09:08] LABS: TROPONIN-I < 0.012 ng/mL (0.000-0.035)
[2020-12-10] MEDS ORDERED: DOXYCYCLINE 10100 MG PO (09:31)
[2020-12-10] MEDS ORDERED: TESSALON P100 MG/CAP PO (09:31)
[2020-12-10 09:50] VITALS: BP 151/86; PULSE 73
== END 2020-12-10 09:50 | disposition home or self-care (01) ==
LOC: COL.ER 07:43
PROVIDERS: Emergency Medicine
DX: J44.9 Chronic obstructive pulmonary disease, unspecified (principal); F17.210 Nicotine dependence, cigarettes, uncomplicated; Z20.822 Contact with and (suspected) exposure to COVID-19; Z79.52 Long term (current) use of systemic steroids
CPT/HCPCS: J1885; J7030

== ENCOUNTER → 2021-04-13 | Outpatient (CLI) | payer MEDICAID ==
[~2021-04-13] MED LIST changes: +TESSALON P100 MG/CAP PO
== END ==
LOC: MHCPAIN 08:58
DX: M47.817 Spondylosis without myelopathy or radiculopathy, lumbosacral region (principal); M54.5 Low back pain; M53.3 Sacrococcygeal disorders, not elsewhere classified
CPT/HCPCS: G0463

== ENCOUNTER 2021-11-25 13:29 | Inpatient (IN) | payer MEDICAID ==
[~2021-11-25] VITALS: Ht 157.5 cm; Wt 47.3 kg
[2021-11-25 15:32] LABS: BASO % 0.3 % (0.0-2.0); EOS % 0.2 % (0.0-4.0); GRAN # 8.6 K/mm3 (1.4-6.5); GRAN % 72.5 % (42.2-75.2); HEMOGLOBIN 12.9 g/dl (12.5-16.0); LYMPH # 1.8 K/mm3 (1.2-3.4); LYMPH % 14.9 % (20.0-51.0); MEAN CELL VOLUME 97 fl (80.0-100.0); MEAN CORPUSCULAR HEMOGLOBIN 34 pg (27-31); MEAN CORPUSCULAR HGB CONC 35 g/dl (33.0-37.0); MEAN PLATELET VOLUME 9.8 fl (7.4-10.4); MONO # 1.3 K/mm3 (0.1-0.6); MONO % 10.9 % (1.7-9.3); PLATELET COUNT 342 K/mm3 (130-400); RED BLOOD COUNT 3.76 M/mm3 (4.10-5.30); REDCELL DISTRIBUTION WIDTH-CV 12.6 % (11.5-14.5)
[2021-11-25 15:42] LABS: HEMATOCRIT 36.5 % (37.0-47.0)
[2021-11-25 15:50] LABS: ALBUMIN 5.2 gm/dL (3.4-4.8); BILIRUBIN,TOTAL 0.7 mg/dL (0.2-1.2); CALCIUM 9.4 mg/dL (8.4-10.2); CREATININE, serum 9.71 mg/dL (0.57-1.11); POTASSIUM 5.6 mmol/L (3.5-4.5); TOTAL PROTEIN 9.8 gm/dL (6.2-8.1)
[2021-11-25 16:52] LABS: COLLECTION METHOD CLEAN CATCH
[2021-11-25 17:09] LABS: MUCOUS Present (NOT PRESENT); PH 5 (5-8); URINE APPEARANCE Hazy (CLEAR/HAZY); URINE BACTERIA Rare /hpf (NONE SEEN); URINE BILIRUBIN Negative (NEGATIVE); URINE BLOOD 2+ (NEGATIVE); URINE COLOR Yellow (YELLOW); URINE GLUCOSE Negative (NEGATIVE); URINE KETONE Trace (NEGATIVE); URINE LEUKOCYTE ESTERASE Negative (NEGATIVE); URINE NITRATE Negative (NEGATIVE); URINE PROTEIN(semi-quant) 1+ (NEGATIVE); URINE RBC None Seen /hpf (0-2)
[2021-11-25 19:18] LABS: CALCIUM 8.3 mg/dL (8.4-10.2); CREATININE, serum 8.86 mg/dL (0.57-1.11); POTASSIUM 5.3 mmol/L (3.5-4.5)
[2021-11-25 21:55] VITALS: BP 121/84; PULSE 92
[2021-11-25 22:35] LABS: CALCIUM 8.5 mg/dL (8.4-10.2); CREATININE, serum 8.63 mg/dL (0.57-1.11); POTASSIUM 5.3 mmol/L (3.5-4.5)
[2021-11-25] MEDS ORDERED: RT ADVAIR 228 DISKUS IH (22:42)
[2021-11-25] MEDS ORDERED: SLOW-MAG 6464 MG/TAB PO (22:44)
[2021-11-25] MEDS ORDERED: MELATONIN3 M1 (22:45)
[2021-11-25] MEDS ORDERED: PROAIR HFA0.09 MG/AC IH (22:46)
[2021-11-25] MEDS ORDERED: AEROCHAMBER1 DEV (22:48)
[2021-11-26 04:14] VITALS: BP 116/68; PULSE 88; TEMP 98.4
--- NOTE | 2021-11-26 06:10 | NUR ---
PT REMAINS A/OX4, INDEPENDENT, VSS, 02 ROOM AIR, N.S INFUSING AT 60CC/HR. URINE COLLECTED AND SENT TO LAB. ALL NEEDS MET THIS SHIFT. CALL LIGHT WITHIN REACH.
--- NOTE | 2021-11-26 07:13 | NUR ---
HONORIO HADLEY CONSULTED FOR PT NEPHRO CONSULT AT 0713.
[2021-11-26 08:18] LABS: BASO % 0.1 % (0.0-2.0); GRAN # 5.4 K/mm3 (1.4-6.5); LYMPH # 0.7 K/mm3 (1.2-3.4); LYMPH % 10.6 % (20.0-51.0); MEAN CELL VOLUME 96 fl (80.0-100.0); MEAN CORPUSCULAR HGB CONC 36 g/dl (33.0-37.0); MEAN PLATELET VOLUME 9.9 fl (7.4-10.4); MONO # 0.7 K/mm3 (0.1-0.6); MONO % 10.3 % (1.7-9.3); PLATELET COUNT 290 K/mm3 (130-400); RED BLOOD COUNT 3.09 M/mm3 (4.10-5.30); REDCELL DISTRIBUTION WIDTH-CV 12.4 % (11.5-14.5)
[2021-11-26 08:25] LABS: HEMATOCRIT 29.6 % (37.0-47.0); HEMOGLOBIN 10.5 g/dl (12.5-16.0); MEAN CORPUSCULAR HEMOGLOBIN 34 pg (27-31)
[2021-11-26 08:30] VITALS: BP 112/52; PULSE 104; TEMP 98.2
[2021-11-26 08:35] LABS: CREATININE, serum 6.9 mg/dL (0.57-1.11); MAGNESIUM 1.5 mg/dL (1.6-2.6); POTASSIUM 4.7 mmol/L (3.5-4.5)
--- NOTE | 2021-11-26 09:15 | NUR ---
Assessment completed, alert/oriented, vital signs stable, denies pain, reports feeling improved sence admission, labs improving with IVF, still having some SOA with exertion, insp.wheezing in right lung casas and diminished, left lung casas CTA, heart RRR/dsital pulses are palpable, she is sitting up in bed, has had breakfast and mornimng meds, denies other need at this time, I have spoke with Nephrology reguarding consultation/ they are aware
--- NOTE | 2021-11-26 10:32 | NUR ---
Initial visit; Patient thanked Fire Extinguisher Tester for offering God's blessings and to mathew her in Fire Extinguisher Tester's prayers.
--- NOTE | 2021-11-26 15:42 | NUR ---
overhead line worker met with patient to discuss discharge plan. Patient reports that she lives in [place] with her Christo ([phone]). Patient reports that she is fully independent at home but does use a walker to assist with mobility when she is going a far distance. PCP is Dr. Castaneda and she utilizes [email or web address] for perscriptions. Patient is on 3.5L of oxygen at night that is managed through [facility]. Patient reports that she did have a DPOA-HC established and that her is her agent. Spoke with the patient about PT/OT recommending HH therapy. Patient states she will not do therapy outside of the home or in the home. Patient reports that she did HH PT for a year in the past and cannot see how it was of benefit to her. Discharge plan: Patient wants to go home with no supports aside from her
[2021-11-26 16:00] VITALS: BP 120/70; PULSE 91; TEMP 98.2
[2021-11-26 20:37] VITALS: BP 124/67; PULSE 83; TEMP 98.2
[2021-11-27 00:05] VITALS: BP 114/64; PULSE 104; TEMP 98.1
--- NOTE | 2021-11-27 00:32 | NUR ---
AT 0000 DYNAMAP DISPLAYS 104 HEART RATE, PT CONTINUES TO RUN TACHYCARDIC RECIVED FROM COS REPORT. THIS NURSE WILL CLOSELY MONITOR. TELE MONITOR DISPLAYS NSR WITH OCCASIONAL PAC'S, RATE BELOW 100.
[2021-11-27 03:39] VITALS: BP 96/58; PULSE 83; TEMP 98.3
--- NOTE | 2021-11-27 05:18 | NUR ---
PT HAD UNEVENTFUL NIGHT THIS SHIFT, NO CLINICAL/NEURO CHANGES OVERNIGHT. CALL LIGHT WITHIN REACH.
[2021-11-27 05:50] LABS: MEAN CELL VOLUME 97 fl (80.0-100.0); MEAN CORPUSCULAR HGB CONC 35 g/dl (33.0-37.0); MEAN PLATELET VOLUME 10.7 fl (7.4-10.4); PLATELET COUNT 266 K/mm3 (130-400); RED BLOOD COUNT 2.67 M/mm3 (4.10-5.30); REDCELL DISTRIBUTION WIDTH-CV 12.4 % (11.5-14.5)
[2021-11-27 06:09] LABS: CREATININE, serum 3.46 mg/dL (0.57-1.11); MAGNESIUM 2.8 mg/dL (1.6-2.6); POTASSIUM 3.5 mmol/L (3.5-4.5)
[2021-11-27 06:14] LABS: HEMATOCRIT 25.9 % (37.0-47.0); MEAN CORPUSCULAR HEMOGLOBIN 34 pg (27-31)
[2021-11-27 07:45] VITALS: BP 105/62; PULSE 86; TEMP 97.8
--- NOTE | 2021-11-27 07:55 | NUR ---
Shift assessment complete. Pt just returning to bed from restroom upon entry. Gait steady. A&Ox4. Heart RRR. Lungs CTA. Denies pain, SOA, dizziness. Neuro checks WNL. Brought pt gatorade per request. Denies further needs. Call light in reach.
[2021-11-27 08:06] LABS: BAND 6 % (0-10); LYMPHOCYTE 18 % (20.0-51.0); NEUTROPHILS 67 % (42.0-75.2); PLATELET ESTIMATE NORMAL (NORMAL)
--- NOTE | 2021-11-27 11:40 | NUR ---
Discharge instructions discussed w/pt and all questions answered. IV to left AC removed w/tip intact. Pt told to call when ride arrived so she could be escorted out. This RN found pt wandering in avalos trying to find the exit. Escorted her out to pt admissions to ride w/all belongings.
== END 2021-11-27 11:45 | disposition home or self-care (01) | DRG 683 ==
LOC: COL.ER 13:29 → MEDICAL 18:12
PROVIDERS: Personal Emergency Response Attendant; Physician Assistant; ADMIT Student in an Organized Health Care Education/Training Program
DX: N17.9 Acute kidney failure, unspecified (principal); J44.1 Chronic obstructive pulmonary disease with (acute) exacerbation; I50.22 Chronic systolic (congestive) heart failure; E87.1 Hypo-osmolality and hyponatremia; E87.2 Acidosis; I13.0 Hypertensive heart and chronic kidney disease with heart failure and stage 1 through stage 4 chronic kidney disease, or unspecified chronic kidney disease; G89.29 Other chronic pain; M54.50 Low back pain, unspecified; F17.210 Nicotine dependence, cigarettes, uncomplicated; E86.0 Dehydration; E87.5 Hyperkalemia; G25.81 Restless legs syndrome; E86.1 Hypovolemia; E83.42 Hypomagnesemia; F32.A Depression, unspecified; N18.4 Chronic kidney disease, stage 4 (severe); Z20.822 Contact with and (suspected) exposure to COVID-19; Z93.3 Colostomy status; Z79.52 Long term (current) use of systemic steroids; Z23 Encounter for immunization
CPT/HCPCS: 99223-AI; 99233-AI; 99239; J0696; J1100; J1644; J2270; J2405; J3475; J7030; J7512

== ENCOUNTER 2023-02-11 06:57 | Inpatient (IN) | payer MEDICAID ==
[~2023-02-11] VITALS: Ht 157.5 cm; Wt 50.6 kg
[2023-02-11] VITALS (744 sets, daily range): BP systolic 79–123; BP diastolic 50–77; PULSE 88–96; TEMP 99.1–101; O2SAT 61–100
[~2023-02-11 06:57] MED LIST changes: +AEROCHAMBER1 DEV; +CELEXA10 MG PO; +COREG 6.256.25 MG/TA PO; +DOXYCYCLINE HY100 MG PO; +MELATONIN5 M1 PO; +OMNICEF 300MG300 MG PO; +REMERON 15M15 MG/TA1 PO; +RT ADVAIR 228 DISKUS IH; +SLOW-MAG 6464 MG/TAB PO; +ZITHROMAX500 M2 PO
[2023-02-11 07:47] LABS: MEAN CELL VOLUME 100 fl (80.0-100.0); MEAN CORPUSCULAR HGB CONC 33 g/dl (33.0-37.0); MEAN PLATELET VOLUME 10.8 fl (7.4-10.4); PLATELET COUNT 637 K/mm3 (130-400); RED BLOOD COUNT 2.89 M/mm3 (4.10-5.30); REDCELL DISTRIBUTION WIDTH-CV 14.2 % (11.5-14.5)
[2023-02-11 07:54] LABS: HEMATOCRIT 28.9 % (37.0-47.0); HEMOGLOBIN 9.6 g/dl (12.5-16.0); MEAN CORPUSCULAR HEMOGLOBIN 33 pg (27-31)
[2023-02-11 08:04] LABS: ALBUMIN 3.1 gm/dL (3.4-4.8); BILIRUBIN,TOTAL 0.4 mg/dL (0.2-1.2); CALCIUM 7.4 mg/dL (8.4-10.2); CREATININE, serum 3.08 mg/dL (0.57-1.11); POTASSIUM 3.9 mmol/L (3.5-4.5); TOTAL PROTEIN 8.6 gm/dL (6.2-8.1)
[2023-02-11 08:33] LABS: LYMPHOCYTE 30 % (20.0-51.0); METAMYELOCYTE 3 % (0-0); NEUTROPHILS 61 % (42.0-75.2)
[2023-02-11 08:34] LABS: PLATELET ESTIMATE INCREASED (NORMAL)
--- NOTE | 2023-02-11 13:40 | NUR ---
Telehealth visit conducted with Dr. Braydon Urrutia, Infectious Disease. Patient consented to visit. Patients husand and nurse present. Telecommunication initiated without any difficulties during exam. All questions were answered by Dr. Urrutia
[2023-02-11 14:57] LABS: COLLECTION METHOD CLEAN CATCH
[2023-02-11 15:01] LABS: URINE APPEARANCE Cloudy (CLEAR/HAZY); URINE COLOR Amber (YELLOW); URINE GLUCOSE Negative (NEGATIVE); URINE KETONE TRACE (NEGATIVE); URINE PROTEIN(semi-quant) 2+ (NEGATIVE); URINE UROBILINOGEN 0.2 E.U/dL (0.2-1.0)
[2023-02-11 15:02] LABS: URINE BLOOD 1+ (NEGATIVE); URINE NITRATE Negative (NEGATIVE)
[2023-02-11 15:03] LABS: MUCOUS Present (NOT PRESENT); URINE BACTERIA Rare /hpf (NONE SEEN); URINE RBC 0-2 /hpf (0-2)
[2023-02-11 16:22] LABS: CLOSTRIDIUM DIFF A/B NEG
--- NOTE | 2023-02-11 19:08 | NUR ---
Received report from day shift nurse. Pt is resting in bed with call light within reach. B/P is low but day shift nurse titrated levophed up. Other vitals are stable at this time.
[2023-02-12] VITALS (1143 sets, daily range): BP systolic 76–124; BP diastolic 42–100; PULSE 75–90; TEMP 98.7–99.4; O2SAT 85–100
--- NOTE | 2023-02-12 00:16 | NUR ---
2000 Pt states having pain in the chest, back and arms from brusies and pneumonia and is consistent and hurts worse with cough and would like pain meds. Pt denies headache, dizziness, light headed, and nausea. Pt is alert and oriented x4 and follows commands. Pt states she feels better then when she first came in. Pt is able to turn and pivot by herself with nurse at standby and just needs help with the tubing and wires. Pt is resting in bed at this time with call light within reach.
--- NOTE | 2023-02-12 02:36 | NUR ---
0200 Pt states their pain is a 7 that is constent and throbbing in the chest, back, and arm areas from brusing and pneumonia and worsens with coughing. Pt states she would like some pain meds. Nurse gave pain meds. per EMAR.
[2023-02-12 03:54] LABS: MEAN CELL VOLUME 103 fl (80.0-100.0); MEAN CORPUSCULAR HGB CONC 32 g/dl (33.0-37.0); MEAN PLATELET VOLUME 10.5 fl (7.4-10.4); RED BLOOD COUNT 2.35 M/mm3 (4.10-5.30); REDCELL DISTRIBUTION WIDTH-CV 14.2 % (11.5-14.5)
[2023-02-12 04:00] LABS: HEMATOCRIT 24.2 % (37.0-47.0); HEMOGLOBIN 7.8 g/dl (12.5-16.0); MEAN CORPUSCULAR HEMOGLOBIN 33 pg (27-31); PLATELET COUNT 487 K/mm3 (130-400)
[2023-02-12 04:09] LABS: ALBUMIN 2.2 gm/dL (3.4-4.8); CREATININE, serum 2.75 mg/dL (0.57-1.11); PHOSPHOROUS 4.5 mg/dL (2.3-4.7)
[2023-02-12 04:12] LABS: CALCIUM 5.8 mg/dL (8.4-10.2); MAGNESIUM 0.6 mg/dL (1.6-2.6)
[2023-02-12 04:19] LABS: BAND 12 % (0-10); EOSINOPHIL 1 % (0-4); HYPOCHROMIA 1+; LYMPHOCYTE 3 % (20.0-51.0); NEUTROPHILS 84 % (42.0-75.2); PLATELET ESTIMATE INCREASED (NORMAL)
--- NOTE | 2023-02-12 06:30 | NUR ---
Report received from JASVIR Malone; patient currently resting in bed; levophed, IV fluids and magnesium are currently running through patient's right upper arm PICC. Patient has another peripheral INT and is on oxygen, 1 LPM via NC. Patient has ileostomy; no other lines or tubes are in place at this time. Patient's vital signs are within normal limits this morning.
--- NOTE | 2023-02-12 06:46 | NUR ---
0610 Pt rated pain as a 6 and said it's in the same areas as it's been with the other pain assessments and feels like throbbing pain and would like more pain meds. Nurse gave pain meds. per EMAR. Pt's vitals have been stable throughout the night. SpO2 has stayed in the high 90's on 1L NC and BP is at and above MAP goal with levophed. RR is in the 30's after getting to and from the bedside commode. HR has been SR and ST when getting up to the bedside commode. Pt got a couple hours of sleep throughout the shift. Pt is resting in bed and has call light within reach. Will give report to day shift nurse.
--- NOTE | 2023-02-12 11:38 | NUR ---
SW met with patient to complete intake. Patient states that she lives in [facility]. Next of kin is guardian/POA Christo Kauffman [phone]. Patient states that she utilizes a walker as well as a cane, is independent with ADL's, and does not utilize HH services at this time. PCP is Dr. Castaneda and pharmacy is [facility]. Patient states that she plans to return to her home in [place] upon DC. ASTON will continue to follow. DC plan: home
--- NOTE | 2023-02-12 16:12 | NUR ---
stopped by but nothing needed at this time.
--- NOTE | 2023-02-12 20:00 | NUR ---
SHIFT REPORT RECEIVED. PT A&O x4 IN BED WATCHING TV. PT IS ON 1L NC WITH UPPER LUNG SOUNDS FINE COARSE AND BASES DIMINISHED. PT DOES NOT FEEL SOB AT THIS TIME. PT HAS ACATTERED BRUISING BUE WITH LARGER BRUISE ON LT ARM AT BLOOD PRESSURE CUFF SITE, ALSO BRUISING TO ABD. PT WITH C/O GENERALIZED PAIN TO NECK/UPPER BACK, LBP, AND CHEST FROM COUGHING. PT RATES PAIN 7/10 GENERALIZED/THROBBING FEELING. REQUESTING NORCO AT THIS TIME, GIVEN PER EMAR. PT IS SBA FOR BEDSIDE COMMODE AND CAN SELF EMPTY AND MANAGE OSTOMY BAG. PT ORIENTED TO ROOM AND HAS CALL LIGHT AT BEDSIDE.
[2023-02-13] VITALS (574 sets, daily range): BP systolic 91–124; BP diastolic 50–85; PULSE 82–98; TEMP 97.8–98.8; O2SAT 74–100
[2023-02-13 06:44] LABS: BASO # 0.1 K/mm3 (0.0-0.2); BASO % 0.7 % (0.0-2.0); EOS # 0.3 K/mm3 (0.0-0.7); GRAN % 81.1 % (42.2-75.2); HEMATOCRIT 21.3 % (37.0-47.0); HEMOGLOBIN 7.2 g/dl (12.5-16.0); LYMPH # 0.8 K/mm3 (1.2-3.4); LYMPH % 7.1 % (20.0-51.0); MEAN CORPUSCULAR HEMOGLOBIN 33 pg (27-31); MEAN CORPUSCULAR HGB CONC 34 g/dl (33.0-37.0); MEAN PLATELET VOLUME 10.8 fl (7.4-10.4); MONO # 0.8 K/mm3 (0.1-0.6); MONO % 7.2 % (1.7-9.3); PLATELET COUNT 439 K/mm3 (130-400); RED BLOOD COUNT 2.18 M/mm3 (4.10-5.30); REDCELL DISTRIBUTION WIDTH-CV 13.9 % (11.5-14.5)
[2023-02-13 06:46] LABS: MEAN CELL VOLUME 98 fl (80.0-100.0)
[2023-02-13 07:04] LABS: ALBUMIN 2.1 gm/dL (3.4-4.8); CALCIUM 7.1 mg/dL (8.4-10.2); CREATININE, serum 2.06 mg/dL (0.57-1.11); MAGNESIUM 1.7 mg/dL (1.6-2.6); PHOSPHOROUS 3.8 mg/dL (2.3-4.7); POTASSIUM 3.6 mmol/L (3.5-4.5)
--- NOTE | 2023-02-13 19:15 | NUR ---
Received report from JASVIR Herrera. Patient resting quietly in bed watching TV. She is alert and oriented; vitals within normal limits. Continues to receive IVF according to eMAR - no medications or drips infusing at this time. Intermittently wearing 1L oxygen via nasal cannula, primarily when planning to sleep. Bed in lowest position, all alarms on, call light within reach.
--- NOTE | 2023-02-13 20:31 | NUR ---
UPON INITIAL ASSESSMENT, PATIENT WAS A&O X4, PUPILS 2MM PERRLA, S1S2 HEART SOUNDS, NORMAL SINUS RHYTHM, CAP REFILL <3 SECONDS, CLEAR LUNG SOUNDS, PAIN OF 7 IN ARMS AND 5 IN BACK, BRUISING TO UPPER EXTREMITIES, PICC UPPER RIGHT ARM - CLEAN DRY AND INTACT, COLOSTOMY WITH LOOSE BROWN STOOL, NORMAL BOWEL SOUNDS IN ALL QUADRANTS, NO EDEMA BUT SLIGHT PUFFINESS TO FEET, NO SKIN TENNTING. DEBORAH PIC WAS FLUSHED AND DC'D AT THIS TIME. PATIENT VOIDED AND EMPTIED COLOSTOMY. OUTPUT RECORDED. MEDICATIONS GIVEN. CALL LIGHT WITHIN REACH, BED IN LOW POSITION AND BELONGINGS CLOSE BY. CAIO HAS NO OTHER COMPLAINTS AND REQUESTS AT THIS TIME.
[2023-02-14] VITALS (9 sets, daily range): BP systolic 107–141; BP diastolic 66–105; PULSE 85–102; TEMP 97.7–99.3
[2023-02-14 04:25] LABS: BASO # 0.1 K/mm3 (0.0-0.2); BASO % 0.7 % (0.0-2.0); EOS # 0.4 K/mm3 (0.0-0.7); EOS % 3.3 % (0.0-4.0); GRAN # 9.2 K/mm3 (1.4-6.5); GRAN % 74.9 % (42.2-75.2); LYMPH # 1.6 K/mm3 (1.2-3.4); LYMPH % 12.9 % (20.0-51.0); MEAN CELL VOLUME 102 fl (80.0-100.0); MEAN CORPUSCULAR HGB CONC 33 g/dl (33.0-37.0); MEAN PLATELET VOLUME 10.3 fl (7.4-10.4); MONO # 0.9 K/mm3 (0.1-0.6); MONO % 7.5 % (1.7-9.3); PLATELET COUNT 443 K/mm3 (130-400); RED BLOOD COUNT 2.04 M/mm3 (4.10-5.30); REDCELL DISTRIBUTION WIDTH-CV 14.5 % (11.5-14.5)
[2023-02-14 04:29] LABS: HEMATOCRIT 20.8 % (37.0-47.0); MEAN CORPUSCULAR HEMOGLOBIN 33 pg (27-31)
[2023-02-14 04:30] LABS: HEMOGLOBIN 6.8 g/dl (12.5-16.0)
[2023-02-14 04:44] LABS: ALBUMIN 1.9 gm/dL (3.4-4.8); CALCIUM 7.8 mg/dL (8.4-10.2); CREATININE, serum 1.98 mg/dL (0.57-1.11); MAGNESIUM 1.7 mg/dL (1.6-2.6); PHOSPHOROUS 3.3 mg/dL (2.3-4.7); POTASSIUM 3.7 mmol/L (3.5-4.5)
--- NOTE | 2023-02-14 06:42 | NUR ---
Patient's hemoglobin gradually downward-trending throughout current admission. Today's result of 6.8. Samina notified. Orders received for occult stool and to administer one unit PRBC. Unit currently infusing, patient tolerating well.
--- NOTE | 2023-02-14 07:39 | NUR ---
BEDSIDE REPORT RECEIVED FROM JASVIR DAVIS. PT RESTING IN BED, VSS, DENIES NEEDS AT THIS TIME. PRBC INFUSING TO R UPPER ARM PICC PER PROTOCOL. CALL LIGHT IN REACH.
[2023-02-14 09:38] LABS: PATHOLOGY DIFF REVIEW OK
[2023-02-14] MEDS ORDERED: FERROUS SU325 MG/TAB PO (10:21)
[2023-02-14] MEDS ORDERED: OXYGEN NASAL.CANN (10:24)
[2023-02-14] MEDS ORDERED: CEFTIN500 MG PO (11:27)
[2023-02-14 11:40] LABS: HEMATOCRIT 26.6 % (37.0-47.0); HEMOGLOBIN 8.6 g/dl (12.5-16.0)
[2023-02-14] MEDS ORDERED: NORCO 325 MG-51 TAB PO (12:17)
--- NOTE | 2023-02-14 12:42 | NUR ---
ASTON me with patient to discuss the need for additional home oxygen needs. Patient adamant that she does not need the additional oxygen. Patient verbalizes that she had to fight the walker during the ex ox testing to which she verbalized to the RT while in the hallway and strongly feels as if this is the reason her oxygen dropped. Patient heard by this SW while in hallway telling RT these concerns. Patient agreeable to this ASTON reaching out to her PCP office to notify them to check on her oxygen needs during her follow up appointment. Phone call made to ASTON Lino at [facility] to notify. Hospitalist notified. Discharge plan: home
== END 2023-02-14 12:30 | disposition home or self-care (01) | DRG 871 ==
LOC: COL.ER 06:57 → ICU 08:25
PROVIDERS: Personal Emergency Response Attendant; ADMIT Internal Medicine
PROC: 02HV33Z Insertion of Infusion Device into Superior Vena Cava, Percutaneous Approach (ICD-10-PCS; principal; 2023-02-11)
DX: A41.9 Sepsis, unspecified organism (principal); J18.9 Pneumonia, unspecified organism; R65.21 Severe sepsis with septic shock; J96.21 Acute and chronic respiratory failure with hypoxia; I50.22 Chronic systolic (congestive) heart failure; N18.4 Chronic kidney disease, stage 4 (severe); N17.9 Acute kidney failure, unspecified; E44.0 Moderate protein-calorie malnutrition; Z68.1 Body mass index [BMI] 19.9 or less, adult; J44.9 Chronic obstructive pulmonary disease, unspecified; Z93.3 Colostomy status; F32.A Depression, unspecified; G25.81 Restless legs syndrome; D69.6 Thrombocytopenia, unspecified; F17.210 Nicotine dependence, cigarettes, uncomplicated; Z88.1 Allergy status to other antibiotic agents; I95.9 Hypotension, unspecified; G47.36 Sleep related hypoventilation in conditions classified elsewhere; R53.81 Other malaise; R53.1 Weakness; I27.20 Pulmonary hypertension, unspecified; M54.50 Low back pain, unspecified; E83.42 Hypomagnesemia; E83.51 Hypocalcemia
CPT/HCPCS: C1751; J0612; J2270; J2405; J2543; J3370; J3475; J3480; J7030; J7050; J7060; J7120; P9016

== ENCOUNTER 2024-05-11 14:05 | Inpatient (IN) | payer MEDICAID ==
[~2024-05-11] VITALS: Ht 157.5 cm; Wt 50.2 kg
[~2024-05-11 14:05] MED LIST changes: +CEFTIN500 MG PO; +FERROUS SU325 MG/TAB PO; +OXYGEN NASAL.CANN
[2024-05-11] MEDS ORDERED: NS 1,000 ML IV ONE ×2 (14:30→15:15)
[2024-05-11 14:51] LABS: BASO % 0.4 % (0.0-2.0); EOS # 0.1 K/mm3 (0.0-0.7); GRAN # 6.4 K/mm3 (1.4-6.5); GRAN % 61.1 % (42.2-75.2); HEMATOCRIT 37.8 % (37.0-47.0); HEMOGLOBIN 12.9 g/dl (12.5-16.0); LYMPH % 29.2 % (20.0-51.0); MEAN CELL VOLUME 101 fl (80.0-100.0); MEAN CORPUSCULAR HEMOGLOBIN 35 pg (27-31); MEAN CORPUSCULAR HGB CONC 34 g/dl (33.0-37.0); MEAN PLATELET VOLUME 11.3 fl (7.4-10.4); MONO # 0.8 K/mm3 (0.1-0.6); MONO % 7.7 % (1.7-9.3); PLATELET COUNT 181 K/mm3 (130-400); RED BLOOD COUNT 3.73 M/mm3 (4.10-5.30); REDCELL DISTRIBUTION WIDTH-CV 13.8 % (11.5-14.5)
[2024-05-11 15:16] LABS: ALANINE AMINOTRANSFERASE 210 U/L (0-55); ALKALINE PHOSPHATASE 107 U/L (40-150); ANION GAP 22 mmol/L (7-16); AST,SGOT 179 U/L (5-34); BILIRUBIN,TOTAL 0.6 mg/dL (0.2-1.2); BLOOD UREA NITROGEN 45 mg/dL (10-20); CALCIUM 10.8 mg/dL (8.4-10.2); CHLORIDE 91 mEq/L (98-107); CREATININE, serum 4.69 mg/dL (0.57-1.11); GLUCOSE 146 mg/dL (70-99); POTASSIUM 3.6 mEq/L (3.5-4.5); SODIUM 135 mEq/L (136-145); TOTAL PROTEIN 9.2 g/dl (6.2-8.1)
[2024-05-11 15:26] LABS: TROPONIN-I < 0.010 ng/mL (0.00-0.033)
[2024-05-11] MEDS ORDERED: fentaNYL 50 MCG/ML 2 ML VIAL IV ONE (15:30)
[2024-05-11] MEDS ORDERED: Acetaminophen 325 MG TAB PO PRN (17:15)
[2024-05-11] MEDS ORDERED: NS 1,000 ML IV SCH (17:15)
[2024-05-11] MEDS ORDERED: Albuterol 0.042% Neb Soln 1.25 MG/3 ML UD IH PRN (17:15)
[2024-05-11] MEDS ORDERED: Ondansetron 4 MG/2 ML VIAL IV PRN (17:15)
[2024-05-11] MEDS ORDERED: Formoterol 20 MCG,Budesonide 0.5 MG IH SCH (19:00)
[2024-05-11 20:00] VITALS: BP 100/67; PULSE 92; TEMP 98.1
[2024-05-11] MEDS ORDERED: Nicotine 14 MG DAILY PATCH TD ONE (20:00)
[2024-05-11 20:01] VITALS: BP_SYST 100
[2024-05-11] MEDS ORDERED: oxyCODONE 5 MG TAB PO PRN (20:15)
--- NOTE | 2024-05-11 21:37 | NUR ---
Patient arrived to medical unit from ER at approximately 1940. Alert and oriented, and able to make needs known. Reported level 8 pain to abdomen. Called Serafin, and given PRN Roxicodone per orders. Also received order for Nicotine patch and placed to left arm. Peripheral IV to right forearm with IV fluids running per orders. INT to left AC not flushing and taken out. Denies SOB and dyspnea. LS CTA. HRR. BSA. Colostomy, independent with care of it. Has not been able to void yet. Aware of need for UA, and supplies in bathroom. No edema. Reports dizziness is much better now. Denies nausea. Voices no questions, needs, or concerns at this time. In bed with call light within reach. High fall risk precautions in place. Bed alarm on.
[2024-05-11 23:23] VITALS: BP 85/49; PULSE 86; TEMP 98.6
[2024-05-11 23:57] VITALS: BP_SYST 85
[2024-05-11 23:58] VITALS: BP 98/57
[2024-05-12] MEDS ORDERED: Heparin 5,000 UNITS/ML 1 ML VIAL SQ SCH
[2024-05-12 01:00] LABS: COLLECTION METHOD CATHETER
[2024-05-12 01:14] LABS: URINE APPEARANCE CLEAR (CLEAR/HAZY); URINE BLOOD NEGATIVE (NEGATIVE); URINE COLOR Dark Yellow (YELLOW); URINE GLUCOSE NEGATIVE (NEGATIVE); URINE KETONE 1+ (NEGATIVE); URINE NITRATE NEGATIVE (NEGATIVE); URINE PROTEIN(semi-quant) 1+ (NEGATIVE)
[2024-05-12 01:29] LABS: MUCOUS PRESENT (NOT PRESENT); URINE BACTERIA RARE /hpf (NONE SEEN); URINE RBC NONE SEEN /hpf (0-2); URINE WBC 0-2 /hpf (0-2)
[2024-05-12 03:59] VITALS: BP 106/67; PULSE 78; TEMP 98.1
[2024-05-12 04:24] VITALS: BP_SYST 106
--- NOTE | 2024-05-12 06:04 | NUR ---
Patient received PRN Roxicodone twice this shift as requested. Continues on IV fluids per orders. Voices no questions, needs, or concerns at this time. In bed with call light within reach. High fall risk precautions in place. Bed alarm on.
--- NOTE | 2024-05-12 06:40 | NUR ---
PT RESTING IN BED. PT IS ON RA. PT IS NOT ON TELE. PT IS AXOX4. PT HAS IVF RUNNING. PT HAS CALL LIGHT WITHIN REACH AND INSTRUCTED TO CALL WITH ALL NEEDS.
[2024-05-12 07:23] LABS: BASO # 0.1 K/mm3 (0.0-0.2); BASO % 0.5 % (0.0-2.0); EOS # 0.4 K/mm3 (0.0-0.7); EOS % 4.6 % (0.0-4.0); GRAN # 4.2 K/mm3 (1.4-6.5); GRAN % 44.5 % (42.2-75.2); LYMPH # 3.7 K/mm3 (1.2-3.4); MEAN CORPUSCULAR HGB CONC 34 g/dl (33.0-37.0); MONO % 11.1 % (1.7-9.3); PLATELET COUNT 148 K/mm3 (130-400); RED BLOOD COUNT 2.98 M/mm3 (4.10-5.30); REDCELL DISTRIBUTION WIDTH-CV 14.1 % (11.5-14.5)
[2024-05-12 07:27] LABS: HEMATOCRIT 29.8 % (37.0-47.0); MEAN CELL VOLUME 100 fl (80.0-100.0); MEAN CORPUSCULAR HEMOGLOBIN 34 pg (27-31)
[2024-05-12 07:36] VITALS: BP 124/81; PULSE 74; TEMP 98.1
[2024-05-12 07:37] LABS: CALCIUM 8.2 mg/dL (8.4-10.2); CREATININE, serum 2.79 mg/dL (0.57-1.11)
[2024-05-12] MEDS ORDERED: Citalopram 20 MG TAB PO SCH (09:00)
[2024-05-12] MEDS ORDERED: Tiotropium 2.5 MCG Respimat MDI IH SCH (09:00)
[2024-05-12 09:04] VITALS: BP_SYST 124
--- NOTE | 2024-05-12 09:35 | NUR ---
SW met with patient to complete intake assessment and discuss discharge planning. Patient was up in bed, eating breakfast. Patient confirmed that she resides with her brother Denny Blanchard [phone] in [place]. Patient informed ASTON that her PCP is Dr Velasco and that her pharmacy is [facility] in [place]. Patient reports that she uses walker and shower chair in her home, no other DMEs reported. Patient shared that she is independent with her ADLs and has some assistance with lisw from her brother. Patient informed ASTON that her brother is her DPOA, not on file with [facility] but shared that she has documentation in her home. Patient is anticipating to discharge back to her residence. Discharge plan: home w/brother (pending)
--- NOTE | 2024-05-12 09:42 | NUR ---
SW met with patient to complete intake and discuss discharge planning. Patient confirmed that she resides in [place] with her life partner (Christo Ruiz [phone]) Patient reports that her PCP is Dr Andrade and pharmacy of choice is [facility]. Patient shared that she does use walker,cane and shower chair in her home. She reports that she is fairly independent with ADLs and her partner supports her with button breaker. Patient has DPOA on file. Patient is anticipating to discharge back to her residence with life partner. Discharge plan: home (pending)
--- NOTE | 2024-05-12 11:26 | NUR ---
Data: Patient and Visitor politely declined spiritual care visit offered during Circular Knife Cutter Machine rounds. Assessment: None. Patient declined. Plan of Care: Chaplains will remain available as requested while Patient is admitted to this hospital.
[2024-05-12] MEDS ORDERED: ZOFRAN 4MG T4 MG/TAB PO (11:27)
[2024-05-12] MEDS ORDERED: ROXICODONE 55 MG/TAB PO (11:28)
[2024-05-12] MEDS ORDERED: Sodium Bicarbonate 650 MG TAB PO ONE (11:30)
[2024-05-12] MEDS ORDERED: SODIUM BICARBO650 MG PO (11:31)
--- NOTE | 2024-05-12 12:01 | NUR ---
IV REMOVED. DISCHARGE INSTRUCTIONS DISCUSSED. NEW MEDICAITONS DISCUSSED AND FOLLOW UPS. ALL QUESTIONS ANSWERED. PT AWAITING TO ARRIVE. INSTRUCTED HER TO CALL WHEN HE ARRIVES FOR DISCHARGE.
--- NOTE | 2024-05-12 12:24 | NUR ---
Pt wheeled out for discharge by [facility].
== END 2024-05-12 12:25 | disposition home or self-care (01) | DRG 683 ==
LOC: COL.ER 14:05 → MEDICAL 17:09
PROVIDERS: Emergency Medicine; Personal Emergency Response Attendant; ADMIT Internal Medicine
DX: N17.9 Acute kidney failure, unspecified (principal); E44.0 Moderate protein-calorie malnutrition; N18.30 Chronic kidney disease, stage 3 unspecified; E86.0 Dehydration; J44.9 Chronic obstructive pulmonary disease, unspecified; Z72.0 Tobacco use; F32.A Depression, unspecified
CPT/HCPCS: A9270; J1644; J3010; J7030

== ENCOUNTER 2024-06-27 16:06 | Inpatient (IN) | payer MEDICAID ==
[~2024-06-27] VITALS: Ht 157.5 cm; Wt 49.8 kg
[~2024-06-27 16:06] MED LIST changes: +ZOFRAN 4MG T4 MG/TAB PO
[2024-06-27] MEDS ORDERED: fentaNYL 50 MCG/ML 2 ML VIAL IV ONE ×2 (16:30→18:45)
[2024-06-27] MEDS ORDERED: NS 1,000 ML IV ONE (16:30)
[2024-06-27 16:32] LABS: BASO % 0.3 % (0.0-2.0); EOS # 0.1 K/mm3 (0.0-0.7); EOS % 0.6 % (0.0-4.0); GRAN # 6.7 K/mm3 (1.4-6.5); GRAN % 65.8 % (42.2-75.2); HEMOGLOBIN 13.6 g/dl (12.5-16.0); LYMPH # 2.1 K/mm3 (1.2-3.4); LYMPH % 20.8 % (20.0-51.0); MEAN CELL VOLUME 98 fl (80.0-100.0); MEAN CORPUSCULAR HEMOGLOBIN 34 pg (27-31); MEAN CORPUSCULAR HGB CONC 35 g/dl (33.0-37.0); MEAN PLATELET VOLUME 10.4 fl (7.4-10.4); MONO # 1.2 K/mm3 (0.1-0.6); MONO % 12.1 % (1.7-9.3); PLATELET COUNT 235 K/mm3 (130-400); REDCELL DISTRIBUTION WIDTH-CV 13.9 % (11.5-14.5)
[2024-06-27 16:56] LABS: ALBUMIN 5.1 g/dL (3.4-4.8); BILIRUBIN,TOTAL 0.5 mg/dL (0.2-1.2); C-REACTIVE PROTEIN 0.86 mg/dL (0.00-0.50); CALCIUM 11.6 mg/dL (8.4-10.2); CREATININE, serum 8.87 mg/dL (0.57-1.11); POTASSIUM 5.1 mEq/L (3.5-4.5)
[2024-06-27 17:44] LABS: COLLECTION METHOD CATHETER
[2024-06-27 17:53] LABS: URINE APPEARANCE CLOUDY (CLEAR/HAZY); URINE BLOOD NEGATIVE (NEGATIVE); URINE COLOR Dark Yellow (YELLOW); URINE GLUCOSE NEGATIVE (NEGATIVE); URINE KETONE 1+ (NEGATIVE); URINE NITRATE NEGATIVE (NEGATIVE); URINE PROTEIN(semi-quant) 2+ (NEGATIVE)
[2024-06-27 18:00] LABS: MUCOUS PRESENT (NOT PRESENT); URINE BACTERIA RARE /hpf (NONE SEEN); URINE RBC 0-2 /hpf (0-2)
[2024-06-27] MEDS ORDERED: Ondansetron 4 MG/2 ML VIAL IV PRN (20:00)
[2024-06-27] MEDS ORDERED: Acetaminophen 325 MG TAB PO PRN (20:00)
[2024-06-27] MEDS ORDERED: NS 1,000 ML IV SCH (20:00)
--- NOTE | 2024-06-27 20:01 | NUR ---
REPORT RECIEVED FROM JORGE IN ER AT THIS TIME.
[2024-06-27] MEDS ORDERED: Nicotine 14 MG DAILY PATCH TD SCH (20:02)
[2024-06-27] MEDS ORDERED: Albuterol/Ipratropium 3 MG-0.5 MG/3 ML Neb Soln IH PRN (20:15)
[2024-06-27 20:57] VITALS: BP 117/78; PULSE 70; TEMP 98.5
[2024-06-27 21:00] VITALS: BP_SYST 117
[2024-06-27] MEDS ORDERED: Heparin 5,000 UNITS/ML 1 ML VIAL SQ SCH (21:00)
--- NOTE | 2024-06-27 21:00 | NUR ---
FEMALE PATIENT ARRIVED TO ROOM #317 FROM ED AND LEFT IN ROOM WITHOUT NOTIFIY PRIMARY NURSE. PAPERWORK LEFT NEAR SINK. NS INFUSING INTO LEFT AC WITH NO COMPLICATIONS NOTED. PATIENT RESTING IN BED WITH YELLOW GOWN AND YELLOW SOCKS ON. FALL RISK ARM BAND PLACED ON PATIENT. INITIAL INTAKE AND INITAL ASSESSMENT COMPLETED. PATIENT TOLERATED WELL. PATIENT ATE ONE ORANGE JELLO. PATIENT GIVEN WATER PITCHER WITH ICE AND WATER. MEDICATION ADMINISTRATION COMPLETED. SEE EMAR. PATIENT VERBALIZED UNDERSTANDING OF CALL LIGHT AND BED CONTROLS. ALL NEEDS MET. BED IN LOW POSITION WITH WHEELS LOCKED WITH RAILS UP X2 AND CALL LIGHT WITHIN REACH. BED ALARM ON.
[2024-06-27 23:41] VITALS: BP 97/61; PULSE 80; TEMP 98.2
[2024-06-28] VITALS (12 sets, daily range): BP systolic 91–110; BP diastolic 53–68; PULSE 65–80; TEMP 98.1–98.7
[2024-06-28 05:28] LABS: BASO % 0.4 % (0.0-2.0); EOS # 0.3 K/mm3 (0.0-0.7); GRAN # 4.5 K/mm3 (1.4-6.5); LYMPH # 2.6 K/mm3 (1.2-3.4); LYMPH % 29.6 % (20.0-51.0); MEAN CELL VOLUME 99 fl (80.0-100.0); MEAN CORPUSCULAR HGB CONC 35 g/dl (33.0-37.0); MEAN PLATELET VOLUME 10.9 fl (7.4-10.4); MONO # 1.4 K/mm3 (0.1-0.6); MONO % 15.7 % (1.7-9.3); PLATELET COUNT 198 K/mm3 (130-400); RED BLOOD COUNT 3.09 M/mm3 (4.10-5.30); REDCELL DISTRIBUTION WIDTH-CV 14.2 % (11.5-14.5)
[2024-06-28 05:29] LABS: HEMATOCRIT 30.6 % (37.0-47.0); HEMOGLOBIN 10.6 g/dl (12.5-16.0); MEAN CORPUSCULAR HEMOGLOBIN 34 pg (27-31)
[2024-06-28 05:49] LABS: CALCIUM 9.2 mg/dL (8.4-10.2); CREATININE, serum 7.02 mg/dL (0.57-1.11); POTASSIUM 4.1 mEq/L (3.5-4.5)
--- NOTE | 2024-06-28 06:50 | NUR ---
Bedside report received from JASVIR Guerra. Pt awake in bed with no complaints. Call light within reach.
[2024-06-28] MEDS ORDERED: Budesonide Neb Susp 0.5 MG/2 ML AMP IH SCH (07:00)
[2024-06-28] MEDS ORDERED: Tiotropium 18 MCG **** subs to Tiotropium 5 mcg IH SCH (09:00)
[2024-06-28] MEDS ORDERED: Citalopram 20 MG TAB PO SCH (09:00)
[2024-06-28] MEDS ORDERED: Tiotropium 2.5 MCG Respimat MDI IH SCH (09:00)
[2024-06-28] MEDS ORDERED: Pantoprazole 40 MG in NS 10 ML IV SCH (09:00)
--- NOTE | 2024-06-28 09:40 | NUR ---
Initial visit; Patient thanked Slip Cover Estimator for looking in on her and offering God's blessings. Patient declined Spiritual Care at this time.
[2024-06-28] MEDS ORDERED: Sodium Bicarbonate 650 MG TAB PO SCH (09:49)
--- NOTE | 2024-06-28 10:42 | NUR ---
Pt awake in bed. Shift assessment completed. VSS. 20g IV started into Rt wrist x1 attempt, pt tolerated well with no complaints. IVF infusing into Rt wrist with no complications. INT to Lt AC patent with no swelling, redness, or drainage. Pt requested new IV due to occlusion into LAC when eating. Ecchymosis to chin noted from fall at home, purple discoloration to chin noted. Pt has complaints of lower back pain rating 5/10. Colostomy to RLQ patent with no leaking or skin irriation noted. Stoma normal in color and draining brown stool into colostomy bag with no complications. Pt has no complaints at this time. Call light within reach and fall precautions in place.
--- NOTE | 2024-06-28 11:44 | NUR ---
Sole Buffer and student, Rabia met with patient to complete initial intake. Patient lives in [place] with her spouse, Elias Kauffman (Doug) (ph#[phone]). Patient advised she is not legally to Christo, however they have been together for 30 years and he is her DPOA-HC. SW located a copy in EMR. Patient sees Dr. Castaneda for primary care and gets her medications from [facility] with no difficulties. Patient has a cane and walker available for her at home and remarked that she typically keeps her cane in her car. Patient is independent with ADLS indcluding driving. Patient stated she plans to return home at time of discharge. Discharge Plan; Home
--- NOTE | 2024-06-28 18:41 | NUR ---
PATIENT RESTING IN BED WITH TV ON WITH NO FAMILY PRESENT WITH NO ACUTE DISTRESS NOTED. PATIENT ON ROOM AIR. NS INFUSING INTO RIGHT FOREARM WITH NO COMPLICATIONS NOTED. INT TO LEFT AC INTACT WITH NO COMPLICATIONS NOTED. BEDISDE SHIFT REPORT COMPLETED WITH SANDRINE AT THIS TIME. PATIENT REQUESTED TO GO TO THE BATHROOM AND WAS ASSISTED WITH STAND BY ASSIST. PATIENT VOIDED 100 ML OF CLEAR YELLOW URINE AND EMPTIED COLOSTOMY. COLOSTOMY OUTPUT WAS JELLY-LIKE WITH THE COLOR OF A BROWNISH-GREEN. PATIENT ASSISTED BACK TO BED AND HELPED TO REPOSITION FOR COMFORT. PATIENT ENQUIRED ABOUT TYLENOL. PATIENT VERBALIZED UNDERSTANDING THAT TYLENOL COULD BE GIVEN AROUND 7PM. PATIENT DENIES ANY OTHER NEEDS. BED IN LOW POSITION WITH WHEELS LOCKED WITH RAILS UP X3 AND CALL LIGHT WITHIN REACH. BED ALARM ON.
[2024-06-28] MEDS ORDERED: Formoterol 20 MCG,Budesonide 0.5 MG IH SCH (19:00)
--- NOTE | 2024-06-28 19:05 | NUR ---
PATIENT SITTING UP IN BED WITH TV ON WITH NO FAMILY PRESENT WITH NO ACUTE DISTRESS NOTED. PATIENT ON ROOM AIR. NS INFUSING INTO RIGHT FOREARM WITH NO COMPLICATIONS NOTED. INT TO LEFT AC INTACT WITH NO COMPLICATIONS NOTED. COLOSTOMY INTACT. PATIENT C/O BACK PAIN. PATIENT STATES "MY BACK IS ACHING AND THEY WON'T GIVE ME ANYTHING OTHER THAN TYLENOL." ASSESSMENT COMPLETED. PATIENT TOELRATED WELL. PO TYLENOL GIVEN PER MD ORDER. PATIENT DENIES ANY OTHER NEEDS. BED IN LOW POSITION WITH WHEELS LOCKED WITH RAILS UP X3 AND CALL LIGHT WITHIN REACH. BED ALARM ON.
--- NOTE | 2024-06-28 21:42 | NUR ---
PATIENT RESTING IN BED WITH TV ON WITH NO FAMILY PRESENT WITH NO ACUTE DISTRESS NOTED. PATIENT ON ROOM AIR. NS INFUSING INTO RIGHT FOREARM WITH NO COMPLICATIONS NOTED. INT TO LEFT AC INTACT WITH NO COMPLICATIONS NOTED. MEDICATION ADMINISTRATION COMPLETED AT THIS TIME. PATIENT TOLERATED WELL. ALL NEEDS MET. BED IN LOW POSITION WITH WHEELS LOCKED WITH RAILS UP X3 AND CALL LIGHT WITHIN REACH.
[2024-06-29] VITALS (11 sets, daily range): BP systolic 109–127; BP diastolic 63–73; PULSE 64–85; TEMP 98.2–98.6
[2024-06-29 05:55] LABS: BASO % 0.5 % (0.0-2.0); EOS # 0.4 K/mm3 (0.0-0.7); EOS % 4.2 % (0.0-4.0); GRAN # 3.9 K/mm3 (1.4-6.5); GRAN % 46.3 % (42.2-75.2); LYMPH # 2.7 K/mm3 (1.2-3.4); LYMPH % 32.2 % (20.0-51.0); MEAN CELL VOLUME 103 fl (80.0-100.0); MEAN CORPUSCULAR HGB CONC 33 g/dl (33.0-37.0); MEAN PLATELET VOLUME 11.5 fl (7.4-10.4); MONO # 1.4 K/mm3 (0.1-0.6); MONO % 16.3 % (1.7-9.3); PLATELET COUNT 179 K/mm3 (130-400); RED BLOOD COUNT 2.79 M/mm3 (4.10-5.30); REDCELL DISTRIBUTION WIDTH-CV 14.2 % (11.5-14.5)
[2024-06-29 05:58] LABS: HEMATOCRIT 28.6 % (37.0-47.0); HEMOGLOBIN 9.5 g/dl (12.5-16.0); MEAN CORPUSCULAR HEMOGLOBIN 34 pg (27-31)
[2024-06-29 06:09] LABS: CALCIUM 8.4 mg/dL (8.4-10.2); CREATININE, serum 3.53 mg/dL (0.57-1.11); POTASSIUM 3.9 mEq/L (3.5-4.5)
--- NOTE | 2024-06-29 07:23 | NUR ---
Bedside report received from JASVIR Guerra. Pt awake in bed with no complaints. Call light within reach and fall precautions in place.
--- NOTE | 2024-06-29 08:10 | NUR ---
Pt awake in bed eating breakfast. Shift assessment completed. VSS. IVF infusing into Lt AC with no complications. Pt denies pain at this time rating 0/10. RUQ/RLQ colostomy patent with brown stool dependently draining into bag with no complications. Stoma site WNL. Pt has no complaints at this time. Call light within reach and fall precautions in place.
[2024-06-29] MEDS ORDERED: NS 1,000 ML IV SCH (09:45)
--- NOTE | 2024-06-29 09:47 | NUR ---
Book Sorter and studentRabia attended clinical rounds with the team then followed up with patient and her sister at bedside. Patient should tentatively discharge home tomorrow and she has no questions or concerns at this time about returning home. Discharge Plan: Home
[2024-06-30] VITALS (7 sets, daily range): BP systolic 120–145; BP diastolic 67–74; PULSE 69–85; TEMP 98.3–98.6
[2024-06-30 06:50] LABS: CALCIUM 8.7 mg/dL (8.4-10.2); CREATININE, serum 1.94 mg/dL (0.57-1.11)
[2024-06-30 07:10] LABS: PHOSPHOROUS 3.4 mg/dL (2.3-4.7)
[2024-06-30 07:14] LABS: MAGNESIUM < 0.9 mg/dL (1.6-2.6)
--- NOTE | 2024-06-30 07:14 | NUR ---
A CALL WAS RECEIVED FROM [facility] ANIMAL CYTOLOGIST AT 0714 WITH A MAGNESIUM LEVEL OF LESS THAN 0.9 FOR THIS PATIENT. AT 0714 COLIN Carpenter RN HAD ALREADY TAKEN REPORT ON THE PATIENT SO THIS INFORMATION WAS RELAYED TO HER AT THAT TIME. I KNOW THAT JASVIR SHAW CALLED DR. CABRERA JUST AFTER RECEIVING THIS INFORMATION.
--- NOTE | 2024-06-30 07:19 | NUR ---
NIGHT RN NOTIFIED THIS NURSE OF MAGNESIUM RESULTS. ATTEMPTED TO CALL HOSPITALIST WITH NO ANSWER
--- NOTE | 2024-06-30 07:34 | NUR ---
SEIZURE PRECAUTIONS IN PLACE, PT DENIES NEEDS. BED IN LOWEST POSITION, CALL LIGHT IN REACH, BED ALARM ON
--- NOTE | 2024-06-30 07:49 | NUR ---
THIS PATIENT WAS AWAKE MOST OF THE NIGHT AND HAD FREQUENT BATHROOM TRIPS. THE PATIENTS COLOSTOMY WAS LEAKING MOST OF THE NIGHT AND THE PATIENT WAS ENCOURAGED TO CHANGE THE APPLIANCE OUT, HOWEVER THE PATIENT REFUSED AND ONLY PLACED TAPE AROUND THE OSTOMY. ABOUT 6 AM THE PATIENT ASKED TO CHANGE THE OSTOMY APPLIANCE WHICH SHE DID WITH VERY LITTLE HELP. CURRENTLY THE OSTOMY IS WORKING WELL. THE PATIENT DENIED PAIN OR DISCOMFORT THROUGHTOUT THE NIGHT. THE PATIENT VERBALIZED FREQUENTLY THAT SHE IS LOOKING FORWARD TO GOING HOME TODAY.
--- NOTE | 2024-06-30 08:09 | NUR ---
SECOND ATTEMPT TO CALL HOSPITALIST WITH NO ANSWER
--- NOTE | 2024-06-30 08:51 | NUR ---
PT LAYING IN BED UPON ENTERING. PT AMBULATING TO BATHROOM WITH IV POLE AND DENIES NEED FOR WALKER. ASSESSMENT DONE, MEDS GIVEN PER ORDER. PT DENIES PAIN. NS RUNNING AT 75 IN LEFT FOREARM. OSOTOMY TO RIGHT ABDOMEN, PT MANAGES INDEPENDENTLY. NICOTINE PATCH TO RIGHT UPPER ARM VERIFIED AT BEDISDE REPORT. PT THREW AWAY OLD NICOTINE PATCH TO RIGHT UPPER ARM STATING THAT IT FEEL OFF, NEW PATCH PLACED TO LEFT UPPER ARM. ECCHYMOSIS NOTED TO CHIN FROM FALL. BED IN LOWEST POSITION, CALL LIGHT IN REACH, BED ALARM ON.
[2024-06-30] MEDS ORDERED: Magnesium Oxide 400 MG TAB PO SCH (09:02)
[2024-06-30] MEDS ORDERED: MAG-OX 400400 MG/TAB PO (09:10)
[2024-06-30] MEDS ORDERED: SODIUM BICARBO650 MG PO (09:10)
[2024-06-30] MEDS ORDERED: Magnesium Sulfate 8% 50 ML IV ONE (09:15)
--- NOTE | 2024-06-30 09:33 | NUR ---
FLUIDS STOPPED AND MAGNESIUM HUNG PER ORDER.
--- NOTE | 2024-06-30 12:48 | NUR ---
IV REMOVED AND PT DRESSED IN PERSONAL CLOTHES. DISCHARGE INSTRUCTIONS GIVEN, ALL QUESTIONS ANSWERED. PT HAS PERSONAL BELONGINGS AND ESCORTED TO PERSONAL VEHICLE VIA WHEELCHAIR BY PCT
--- NOTE | 2024-06-30 13:29 | NUR ---
Data: Spiritual care visit attempted. Patient was preparing to discharge. Patient declined. Assessment: None. Patient declined. Plan of Care: Patient discharged.
== END 2024-06-30 12:49 | disposition home or self-care (01) | DRG 683 ==
LOC: COL.ER 16:06 → MEDICAL 19:52
PROVIDERS: Emergency Medicine; Physician Assistant; ADMIT Internal Medicine
DX: N17.9 Acute kidney failure, unspecified (principal); E87.20 Acidosis, unspecified; J44.1 Chronic obstructive pulmonary disease with (acute) exacerbation; N18.4 Chronic kidney disease, stage 4 (severe); F17.210 Nicotine dependence, cigarettes, uncomplicated; E86.0 Dehydration; E83.42 Hypomagnesemia; G89.29 Other chronic pain; R10.9 Unspecified abdominal pain; G25.81 Restless legs syndrome; F32.A Depression, unspecified; Z90.49 Acquired absence of other specified parts of digestive tract; Z79.899 Other long term (current) drug therapy; Z99.81 Dependence on supplemental oxygen; Z23 Encounter for immunization
CPT/HCPCS: A9270; J1644; J2470; J3010; J3475; J7030; Q3014